=== PATIENT | male | born 1935 | race Caucasian/White ===

== ENCOUNTER → 2019-03-22 00:01 | Outpatient (RCR) | payer MEDICARE, OTHER, SELFPAY | LOC: ONCMED 02-21 08:30 | PROVIDERS: Family Provider Nurse Practitioner Family; Visit Provider Internal Medicine Medical Oncology | DX: Z51.12 Encounter for antineoplastic immunotherapy (principal); C34.2 Malignant neoplasm of middle lobe, bronchus or lung; J91.0 Malignant pleural effusion; C77.1 Secondary and unspecified malignant neoplasm of intrathoracic lymph nodes; C78.02 Secondary malignant neoplasm of left lung; E78.5 Hyperlipidemia, unspecified; I12.9 Hypertensive chronic kidney disease with stage 1 through stage 4 chronic kidney disease, or unspecified chronic kidney disease; N18.9 Chronic kidney disease, unspecified; I25.10 Atherosclerotic heart disease of native coronary artery without angina pectoris; I25.2 Old myocardial infarction; M06.9 Rheumatoid arthritis, unspecified; M48.061 Spinal stenosis, lumbar region without neurogenic claudication; Z79.899 Other long term (current) drug therapy; Z79.82 Long term (current) use of aspirin; Z79.52 Long term (current) use of systemic steroids; Z95.5 Presence of coronary angioplasty implant and graft | CPT/HCPCS: 71250; 74176; 80053 ×2; 82565; 84439; 84443 ×2; 84520; 85025 ×2; 96413; 99204; 99214 ×2; J7050; Q9967 ==

== ENCOUNTER 2019-04-20 05:51 | Outpatient (RCR) | payer MEDICARE, OTHER, SELFPAY ==
--- NOTE | 2019-03-24 | CTR_ITS ---
Radation Therapy Planning CT images; total exam DLP: 498.96 mGy-cm MTDD
--- NOTE | 2019-04-05 10:31 | ONCRAD TMN_ITS ---
Radiation Oncology Weekly Treatment Management Patient: Juan Whatley MR#: [id number] : 1935> Age: 83> Sex: Male Dictated by: Dr. Norris Rowland Date of Service: 04/05/2019 Referring Physician(s) : Tangela Whitlock Primary Diagnosis: C78.00 - Secondary malignant neoplasm of unspecified lung, Diagnosed 02/23/2019 (Active) C34.2 - Malignant neoplasm of middle lobe, bronchus or lung, Diagnosed 10/18/2018 (Active) Stage IV, T2a, N0, M1b J91.0 - Malignant pleural effusion, Diagnosed 10/18/2018 (Active) C77.1 - Secondary and unspecified malignant neoplasm of intrathoracic lymph nodes, Diagnosed 10/18/2018 (Active) Radiotherapy to date: Course: RT Lung 30Gy, Treatment Site: RT Lung 30Gy, Ref. ID: [id number], Energy: 15X, Dose/Fx (cGy): 300, #Fx: 5 / 10, Dose Correction (cGy): 0, Total Dose (cGy): 1,500, Start Date: 03/30/2019, Elapsed Days: 6 Current Complaints/Interval History: Constitutional Complains of mild fatigue. Denies lack of appetite, fever, night sweats and change in weight. ENMT Denies odynophagia or dysphagia. Respiratory Complains of a mild cough which is non-productive. Complains of dyspnea associated with normal activity. Denies hemoptysis and wheezing. Current Medications: Acetaminophen, aspirin, furosemide, hYDROcodone-Acetaminophen, lisinopril, lORazepam, marinol, metoprolol Tartrate, nivolumab, predniSONE, predniSONE, simvastatin, simvastatin. Allergies: No Known Allergies Vital Signs: Performed on 04/05/2019 9:39 AM BMI - 22.413 kg/m2, Height - 70.00 in, Weight - 156.2 lbs, Temperature - 97.3 f, Pulse - 74, Respiration - 20, O2 Sat - 98 %, Pain - 0 and BP - 124/ 63 mm(hg)(/low). Physical Exam: Appears stable, no skin erythema or desquamation. Performance Status: 2 - Ambulatory/capable of all self-care, unable to perform any work activities. Up and about more than 50% of waking hours. (ECOG) Lab: Test performed on 02/23/2019 11:00 AM WBC - 13.6 10 3/ul (high), RBC - 3.87 10 6/ul (low), HGB - 11.4 g/dl (low), HCT - 37.1 % (low), MCV - 95.9 fl (high), RDW - 15.2 % (high), Neutrophils - 11.4 10 3/ul (high), Monocytes - 1.1 10 3/ul (high), Sodium - 134 mmol/l (low), Potassium - 6.0 mmol/l (high), CO2 - 20 mmol/l (low), BUN - 46 mg/dl (high), Creatinine - 1.7 mg/dl (high), Cr Clearance (Est) - 31.2100 ml/min (low) and Albumin - 3.1 g/dl (low). Imaging: No new diagnostic imaging was performed since the last weekly treatment visit. All radiation therapy related imaging (including but not limited to CBCT generated images) was reviewed. Appropriate changes, if any, were made to assure accurate target localization. Impression/Plan: Tolerating treatment well. Continue treatment as planned. CPT: 65243 Signed by: Dr. Norris Rowland>04/05/2019 10:30:01 AM <<Signature on File>>
--- NOTE | 2019-04-12 10:00 | XRR_ITS ---
PROCEDURE INFORMATION: Exam: XR Left Foot Complete Exam date and time: 04/12/2019 2:44 PM Age: 83 years old Clinical indication: Condition or disease; Arthritis; Rheumatoid; Multiple sites; Bilateral; Additional info: Ra TECHNIQUE: Imaging protocol: XR Left foot. Views: 3 or more views. COMPARISON: No relevant prior studies available. FINDINGS: Bones/joints: Negative for acute bony abnormality. Negative for radiographic evidence of rheumatoid arthritis. Soft tissues: Unremarkable XR/XR foot LT min 3V* [id number] IMPRESSION: No acute findings. Negative for radiographic evidence of rheumatoid arthritis.
--- NOTE | 2019-04-12 10:00 | XRR_ITS ---
PROCEDURE INFORMATION: Exam: XR Right Hand Exam date and time: 04/12/2019 2:44 PM Age: 83 years old Clinical indication: Screening exam; Check for ra; Prior surgery; Surgery date: 6+ months; Surgery type: Amputation TECHNIQUE: Imaging protocol: XR Right hand. Views: 3 or more views. COMPARISON: No relevant prior studies available. FINDINGS: Bones/joints: Negative for acute bony abnormality. Negative for radiographic evidence of rheumatoid arthritis. There is evidence of osteoarthritis seen. Soft tissues: Normal. XR/XR hand RT min 3V* [id number] IMPRESSION: No acute findings. Negative for rheumatoid arthritis
--- NOTE | 2019-04-12 10:00 | XRR_ITS ---
PROCEDURE INFORMATION: Exam: XR Right Foot Complete Exam date and time: 04/12/2019 2:44 PM Age: 83 years old Clinical indication: Screening exam; Ra TECHNIQUE: Imaging protocol: XR Right foot. Views: 3 or more views. COMPARISON: No relevant prior studies available. 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 Negative for bone changes associated with rheumatoid arthritis. Soft tissues: Unremarkable XR/XR foot RT min 3V* [id number] IMPRESSION: No acute findings. 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
--- NOTE | 2019-04-12 10:00 | XRR_ITS ---
PROCEDURE INFORMATION: Exam: XR Left Hand Exam date and time: 04/12/2019 2:44 PM Age: 83 years old Clinical indication: Screening exam; Rheumatoid arthritis; Prior surgery; Surgery date: 6+ months TECHNIQUE: Imaging protocol: XR Left hand. Views: 3 or more views. COMPARISON: No relevant prior studies available. FINDINGS: Bones/joints: Negative for acute bony abnormality negative for radiographic evidence of rheumatoid arthritis Soft tissues: Normal. XR/XR hand LT min 3V* [id number] IMPRESSION: No acute findings. Negative for radiographic evidence of rheumatoid arthritis
[2019-04-12 13:00] LABS: Erythrocyte Sedimentation Rate 72 mm/hr (0-10)
--- NOTE | 2019-04-20 14:54 | ONCRAD TMN_ITS ---
Radiation Oncology Weekly Treatment Management/ Treatment Summary Patient: Juan Whatley MR#: [id number] : 1935 Age: 83 Sex: Male Dictated by: Dr. Norris Rowland Date of Service: 04/20/2019 Referring Physician(s) : Tangela Whitlock Primary Diagnosis: C78.00 - Secondary malignant neoplasm of unspecified lung, Diagnosed 02/23/2019 (Active) C34.2 - Malignant neoplasm of middle lobe, bronchus or lung, Diagnosed 10/18/2018 (Active) Stage IV, T2a, N0, M1b J91.0 - Malignant pleural effusion, Diagnosed 10/18/2018 (Active) C77.1 - Secondary and unspecified malignant neoplasm of intrathoracic lymph nodes, Diagnosed 10/18/2018 (Active) Radiotherapy to date: Course: RT Lung 30Gy, Treatment Site: RT Lung 30Gy, Ref. ID: [id number], Energy: 15X, Dose/Fx (cGy): 300, #Fx: 10 / 1, Dose Correction (cGy): 0, Total Dose (cGy): 3,000, Start Date: 03/30/2019, End Date: 04/13/2019, Elapsed Days: 14 Course: RT Lung 30Gy, Treatment Site: RT Lung 45Gy, Ref. ID: [id number], Energy: 6X, Dose/Fx (cGy): 300, #Fx: 5 / 5, Dose Correction (cGy): 0, Total Dose (cGy): 1,500, Start Date: 04/14/2019, End Date: 04/20/2019, Elapsed Days: 6 Current Complaints/Interval History: Constitutional Complains of moderate fatigue. Denies lack of appetite, fever, night sweats and change in weight. ENMT Denies odynophagia or dysphagia. Respiratory Complains of a moderate cough which is productive and the sputum is thick and white. Complains of dyspnea associated with more than usual activities. Denies hemoptysis and wheezing. Current Medications: Acetaminophen, aspirin, lORazepam, metoprolol Tartrate, nivolumab, predniSONE, predniSONE, simvastatin, simvastatin. Allergies: No Known Allergies Vital Signs: Performed on 04/20/2019 9:45 AM BMI - 22.527 kg/m2, Height - 70.00 in, Weight - 157.0 lbs, Temperature - 97.7 f, Pulse - 74, Respiration - 20, O2 Sat - 94 % (low), Pain - 0 and BP - 117/ 67 mm(hg). Physical Exam: Appears stable, no skin erythema or desquamation. Performance Status: 3 - Capable of only limited self-care, confined to bed or chair more than 50% of waking hours. (ECOG) Lab: None pending in Radiation Oncology. Imaging: No new diagnostic imaging was performed since the last weekly treatment visit. All radiation therapy related imaging (including but not limited to CBCT generated images) was reviewed. Appropriate changes, if any, were made to assure accurate target localization. Impression/Plan: Tolerated treatment well overall. Completed treatment as planned. CT of chest in 6 weeks and follow up with us afterwards. CPT: 89548 Signed by: Dr. Norris Rowalnd>04/20/2019 2:52:30 PM <<Signature on File>>
== END 2019-04-22 23:59 | disposition home or self-care (01) ==
LOC: ONCMED 05:51
PROVIDERS: Family Provider Nurse Practitioner Family; Visit Provider Radiology Radiation Oncology
DX: Z51.0 Encounter for antineoplastic radiation therapy (principal); C34.2 Malignant neoplasm of middle lobe, bronchus or lung; J91.0 Malignant pleural effusion; C77.1 Secondary and unspecified malignant neoplasm of intrathoracic lymph nodes; C78.02 Secondary malignant neoplasm of left lung; M06.9 Rheumatoid arthritis, unspecified; Z79.891 Long term (current) use of opiate analgesic; M19.041 Primary osteoarthritis, right hand; M19.042 Primary osteoarthritis, left hand; M17.0 Bilateral primary osteoarthritis of knee; Z92.3 Personal history of irradiation; M81.0 Age-related osteoporosis without current pathological fracture
CPT/HCPCS: 73130; 73630; 77014; 77263; 77280; 77290; 77295; 77300; 77301; 77334; 77336; 77338; 77386; 77412; 85651; 86140; 86431; 99204

== ENCOUNTER 2019-04-29 05:46 | Outpatient (RCR) | payer MEDICARE, OTHER, SELFPAY ==
--- NOTE | 2019-04-30 17:51 | ONC FU_ITS ---
Dr. Farrar Patient Follow-Up Note Patient: Juan Whatley Unit #: [id number]: 1935 Dicatated By: Amado Farrar M.D.Date of Visit:Apr 29, 2019 Onc Med Follow-up/Prog Note Chief Complaint: Lung cancer. 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 He has had subsequent progression to stage IV (M1b) with malignant pleural effusion, biopsy-proven mediastinal lymph node involvement, and suspected bone involvement by PET/CT. 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 On 05/28/2012 he underwent cervical mediastinoscopy, thoracic lymphadenectomy, and robotic right middle lobectomy for moderately differentiated adenocarcinoma involving the middle lobe of the left lung. His disease was stage IA (pT2a, pN0, M0). 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 He had otherwise done well until May 2018 when his surveillance chest CT scan showed a new moderate to large right pleural effusion with bilateral indeterminate pulmonary micronodules and an increase in subcarinal adenopathy as well as adenopathy in the AP window. He underwent thoracentesis on 06/30/2018 with pleural fluid cytology suspicious for non-small cell carcinoma. On 01/13/2019 he underwent bronchoscopy with EBUS and biopsies of multiple lymph nodes. Pathology showed metastatic moderately differentiated adenocarcinoma involving station 4R, station 7, and station 10 R lymph nodes. 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 A BRAF mutation was not detected, and the ROS1 gene arrangement was not detected. PD-L1 expression was detected in 0% of tumor cells and and in 30% of tumor associated immune cells. He then underwent placement of a pleural drainage catheter in the right chest. On 08/24/2018 he began treatment with osimertinib 80 mg daily. As of 09/22/2018 the osimertinib was put on hold due to nausea/vomiting and weight loss. He was off for about a week, and his symptoms improved. He then restarted treatment concurrently with ondansetron. I had seen him initially on 10/18/2018, as he had desired to continue his treatment closer to home. At that point he was having some nausea with the osimertinib. He still had a pleural drainage catheter in place, with about 300 mL of fluid out once a week. He opted to continue taking it at 80 mg daily. His other medical illnesses include hypertension, hyperlipidemia, chronic kidney disease, and coronary artery disease. He has had previous myocardial infarction and angioplasty/stent placement. He has history of rheumatoid arthritis, for which he had previously been on treatment with methotrexate. 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 He is a nonsmoker. INTERIM HISTORY: On 10/25/2018 he returned to the office with severe nausea/vomiting. He was given IV fluids and IV anti-emetics daily for 2 days and then again on the following Thursday. During that time the osimertinib was put on hold, and I also had him start prednisone 10 mg twice a day. On 11/01/2018 he was admitted to the hospital after presenting to the emergency room with increased shortness of breath and chest discomfort. He had a slightly elevated troponin T, consistent with non-ST elevation myocardial infarction. His echocardiogram showed hypokinesis of the apex and anterior wall suggesting an infarct in the LAD distribution. The ejection fraction was estimated in the range of 35-40%. The only prior study available was a sestamibi stress test from February 2016 which reported an ejection fraction of 58%. His pleural fluid drainage had increased significantly, requiring it to be drained on a daily basis. He opted to have conservative management. He was discharged home on metoprolol 25 mg twice a day together with isosorbide mononitrate 30 mg daily and 325 mg of aspirin daily. He was seen for a follow-up visit on 11/05/2018. At that point he still had very poor performance status. He continued prednisone 10 mg twice a day, and I also had him start furosemide 20 mg daily and Marinol 2.5 mg twice a day. As his blood pressure was relatively low, I had him stop both the isosorbide mononitrate and the lisinopril. He had subsequently reduced the metoprolol dosage to 12.5 mg daily. He had ongoing problems with weakness and orthostatic lightheadedness, and he continued to have relatively low blood pressure. He then presented with significant worsening of shortness of breath. A CT pulmonary angiogram on 12/13/2018 showed no evidence of pulmonary embolism and there were no other acute findings. There was no change in the right pleural effusion and in the right lower lobe atelectasis. Repeat echocardiogram on 12/15/2018 showed mild diffuse hypokinesia of the left ventricle with ejection fraction estimated at 45-50%, improved compared to the study from 11/01/2018. During subsequent follow-up, he had felt somewhat better, and he ultimately did opt to begin a trial of immunotherapy with nivolumab a 2-week dosing schedule. He received his cycle 1 treatment on 12/22/2018. He tolerated with acceptable toxicity, and he continued with cycle 2 on 01/05/2019, with cycle 3 on 01/19/2019, and with cycle 4 on 02/02/2019. Restaging CT scans of the chest, abdomen, and pelvis on 02/21/2019 showed persistent atelectasis/consolidation in the right lower lobe as well as progression of neoplastic process involving the posterior medial margin of the right upper lobe. There was metastatic pleural thickening similar to the prior exam. There was loculated right pleural effusion and there was persistent mediastinal and right hilar lymphadenopathy. Also noted was increased in number and size of bilateral pulmonary parenchymal metastatic nodules. I had seen him for a follow-up visit on 02/23/2019. I reviewed the CT findings, and we discussed the fact that it did appear that his disease was showing progression. At that point he was still motivated to continue treatment, and he continued with cycle 5 of nivolumab. At his follow-up visit on 03/09/2019 his symptoms had obviously worsened, and there was further decline in his performance status. I recommended that he stop the immunotherapy. After review of his CT scans with Dr. Rowland, he was offered the option to undergo palliative radiation. He completed treatment on 04/20/2019, total dose 4500 cGy. He tolerated it well. He is seen for a follow-up visit. He is definitely feeling better after the radiation, though he still has limited activity. His breathing, though, has improved to the point that he is at least able to take walks. His ECOG score is 2. He has good appetite. He has no fever or night sweats. He does have cough productive of thick, white sputum. He occasionally has chest pain. He has no GI/ complaints other than constipation. He has no significant joint or bone pain. He does not complain of headache. He has some orthostatic lightheadedness. He complains that his feet tingle all night. Medications: Acetaminophen 1 Tablet (of 500 mg) Oral daily, Aspirin 1 Tablet (of 81 mg) Oral at bedtime, LORazepam 1 (0.5 mg) Tablet Oral PRN, Metoprolol Tartrate 0.5 Tablet (of 25 mg) Oral daily, predniSONE 1 Tablet (of 10 mg) Oral daily, Simvastatin 1 Tablet (of 20 mg) Oral at bedtime Allergies: No Known Allergies. Review of Systems: Constitutional - His energy has gotten better and he is feeling better. He is up and around at home. His appetite is good and his weight is down a couple of pounds. No fever, chills, hot flashes, or night sweats. ECOG score is 2, ENMT - No sinus congestion/drainage. No mouth sores. No sore throat or difficulty swallowing, Hematologic/Lymphatic - He bruises easily, Respiratory - His breathing has gotten better, but he still gets short of breath with activity. He has a cough that produces thick white phlegm. No pleuritic pain or hemoptysis, Cardiovascular - He has occasional chest pain. No palpitations, Gastrointestinal - No nausea or vomiting. No heartburn or acid reflux. He has constipation. No blood in the stool or black stools, Genitourinary (M) - No dysuria or hematuria. No urinary frequency. No urgency or incontinence, Musculoskeletal - No joint or bone pain, Integumentary - No skin complications, Neurologic - No headache. He has some dizziness when he stands up. He has numbness and tingling in his feet, Psychiatric - No anxiety or depression. No insomnia. Vital Signs: Performed on Apr 29, 2019 12:15 Height - 70.00 in Weight - 155.8 lbs (LOW) BSA - 1.88 sq.m BMI - 22.36 Temperature - 97.2 F (LOW) Pulse - 103 /min (HIGH) Respiration - 16 /min BP - 138/83 mm(hg) O2 Sat - 93 % (LOW) Pain - 0 Physical Examination: Constitutional - He still appears somewhat weak generally, though definitely better, Eyes - Sclerae nonicteric. Conjunctivae clear, ENMT - No lesions noted in the oral cavity, Hematologic/Lymphatic - No cervical, clavicular, or axillary adenopathy, Respiratory - Lungs show diminished air movement bilaterally, worse on the right, Cardiovascular - Heart rhythm is irregular. The rate is controlled. There is no murmur, gallop, or rub noted, Abdomen - Soft. Liver and spleen are not enlarged. There is no abdominal mass or ascites noted and there is no inguinal adenopathy, Extremities - Slight edema, Neurologic - No focal neurologic deficits noted. Impression: 1. 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 He underwent cervical mediastinoscopy, thoracic lymphadenectomy, and robotic right middle lobectomy on 05/28/2012. 2. He had subsequent progression to stage IV (M1b) with malignant pleural effusion, biopsy-proven mediastinal lymph node involvement, and suspected bone involvement by PET/CT. 3. 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 He began treatment with osimertinib on 08/24/2018. 4. 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 His other medical illnesses include: 5. Hypertension. 6. Hyperlipidemia. 7. Chronic kidney disease. 8. Coronary artery disease with previous myocardial infarction and angioplasty/stent placement. 9. History of rheumatoid arthritis, currently inactive. 10. Degenerative arthritis. 11. 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 He had initially attempted to continue his treatment with osimertinib 80 mg daily. As of 10/25/2018 it was put on hold due to severe nausea. On 11/01/2018 he was admitted to the hospital with suspected non-ST elevation myocardial infarction. His echocardiogram at that time showed severe left ventricular dysfunction with estimated ejection fraction 35-40%. The most likely cause would have been the underlying ischemic heart disease, though osimertinib also was a consideration, as it has a reported incidence of cardiomyopathy in the range of 3-4%. As such, the osimertinib was permanently discontinued. During follow-up he has shown gradual improvement in his appetite/oral intake and in his performance status. He continued to have relatively low blood pressure. He had come in earlier this week with increased shortness of breath. His CT pulmonary angiogram showed no pulmonary embolim or other acute findings. Right pleural effusion and right lower lobe atelectasis appeared stable. His echocardiogram does show significant improvement in the LV function, with his ejection fraction now estimated in the range of 45-50%. Overall, he continued to have fairly marginal performance status, but with those findings he opted to proceed with a trial of immunotherapy with nivolumab at a 2-week dosing schedule. He received cycle 1 on 12/22/2018. He tolerated it with acceptable toxicity, and he continued treatment at 2-week intervals. As of 02/02/2019 he had completed 4 cycles of treatment. His restaging CT scans on 02/21/2019 show some areas of disease progression, including development of bilateral pulmonary parenchymal nodules consistent with metastatic disease. His overall clinical status at that point appeared stable, and he opted to continue with cycle 5 of nivolumab. At his follow-up visit on 03/09/2019 his symptoms had worsened significantly, and he appeared to have a a significant decline in his performance status. At that point I had recommended stopping the immunotherapy. After reviewing his CT scans with Dr. Rowland, he was given the option to undergo palliative radiation to the right lung tumor. He completed treatment on 04/20/2019, total dose 4500 cGy. He has had significant clinical improvement with the radiation. He has not yet been evaluated for response. Plan: He will be followed on observation/symptomatic management while he has some additional time for recovery from the radiation. I will see him again in 1 month with a restaging chest CT. We can then consider the possibility of a trial of second line TKI therapy with erlotinib. In the meantime, he will reduce prednisone to 10 mg daily and he will start a bowel regimen with senna/docusate. Signed By: Amado Farrar M.D. <<Signature on File>>
== END 2019-05-21 23:59 | disposition home or self-care (01) ==
LOC: ONCMED 05:46
PROVIDERS: Family Provider Nurse Practitioner Family; PCP Radiology Radiation Oncology; Visit Provider Internal Medicine Medical Oncology
DX: C34.2 Malignant neoplasm of middle lobe, bronchus or lung (principal); C78.02 Secondary malignant neoplasm of left lung; J91.0 Malignant pleural effusion; C77.1 Secondary and unspecified malignant neoplasm of intrathoracic lymph nodes; I25.2 Old myocardial infarction; M06.9 Rheumatoid arthritis, unspecified; I12.9 Hypertensive chronic kidney disease with stage 1 through stage 4 chronic kidney disease, or unspecified chronic kidney disease; N17.9 Acute kidney failure, unspecified; I25.10 Atherosclerotic heart disease of native coronary artery without angina pectoris; M19.90 Unspecified osteoarthritis, unspecified site; M48.061 Spinal stenosis, lumbar region without neurogenic claudication; E78.5 Hyperlipidemia, unspecified; Z79.899 Other long term (current) drug therapy; Z79.82 Long term (current) use of aspirin; Z79.52 Long term (current) use of systemic steroids; Z90.2 Acquired absence of lung [part of]; Z95.5 Presence of coronary angioplasty implant and graft; Z92.3 Personal history of irradiation
CPT/HCPCS: 99214

== ENCOUNTER 2019-05-03 10:02 | Observation (INO) | payer MEDICARE, OTHER, SELFPAY ==
[2019-05-03] VITALS (8 sets, daily range): BP systolic 108–140; BP diastolic 58–103; PULSE 69–118; RESP 14–24; TEMP 36.5–37.4; O2SAT 93–99; BMI 22.4
--- NOTE | 2019-05-03 10:39 | W.ED.NEUROSD ---
HPI - Neuro Symptoms/Deficit General: Chief Complaint: Neuro Symptoms/Deficit Stated Complaint: Poss. TIA this morning Time Seen by Provider: 05/03/19 10:41 History of Present Illness: Associated symptoms: Deny chest pain Review of Systems General: Reports: 10 or more systems reviewed and unremarkable except in HPI and below Card: Denies: chest pain, palpitations, irregular heart rhythm or edema Resp: Denies: shortness of breath, productive cough, non-productive cough, wheezing, stridor, pain on inspiration, change in phlegm color, coughing up blood, chest congestion or other Neuro: Reports: weakness in extremities and changes in sensation PFSH ED PFSH: Statuses (acute, chronic, etc) shown below reflect problem list status as previously entered and may not be historically accurate Medical History Deformity of joint Hx of radiation therapy Lung cancer OA (osteoarthritis) of knee Osteoarthritis of hands, bilateral Social History Smoking and tobacco status: never smoked Alcohol intake: never History of recent travel: No Physical Exam Const: COMMON NORMALS: no apparent distress, average body habitus, oriented x3, no limitations, healthy appearing, alert and well nourished Resp: COMMON NORMALS: normal respiratory effort, no retractions, no use of accessory muscles, clear to auscultation bilaterally and percussion normal AUSCULTATION: clear to auscultation bilaterally PERCUSSION: percussion normal Extremity: COMMON NORMALS: normal to inspection, full ROM and normal capillary refill Neuro: COMMON NORMALS: oriented x3 SENSORIUM/ORIENTATION: Yes alert Course Vital Signs: Vital signs: Vital Signs Temperature 97.7 F 05/03/19 10:31 Pulse Rate 91 05/03/19 11:58 Respiratory Rate 19 H 05/03/19 11:58 Blood Pressure 130/79 05/03/19 11:58 Pulse Oximetry 95 05/03/19 10:31 MDM - Neuro Symptoms/Deficit Lab Data: Labs: Lab Results 05/03/19 05/03/19 05/03/19 Range/Units 11:05 11:05 11:05 WBC 12.0 H (4.0-10.0) 10^3/ uL RBC 4.32 (4.1-5.3) 10^6/u L Hgb 12.8 (11.7-16.6) g/dL Hct 41.5 L (42.0-52.0) % MCV 96.1 H (80-94) fL MCH 29.6 (28.0-34.0) pg MCHC 30.8 (30.0-36.0) g/dL RDW 15.8 H (12.1-15.1) % Plt Count 268 (130-400) 10^3/c mm MPV 9.5 (7.4-10.4) fL Neut % (Auto) 83.5 % Lymph % (Auto) 5.8 % Newton % (Auto) 9.8 % Eos % (Auto) 0.2 % Baso % (Auto) 0.2 % Neut # (Auto) 10.0 H (1.8-7.7) 10^3/u L Lymph # (Auto) 0.7 L (0.8-4.8) 10^3/u L Newton # (Auto) 1.2 H (0.2-0.9) 10^3/u L Eos # (Auto) 0.0 (0.0-0.8) 10^3/u L Baso # (Auto) 0.0 (0.0-0.1) 10^3/u L Nucleated RBC % (a uto) 0 % Nucleated RBCs # 0.0 /100WBC PT 14.20 H (10.5-13.3) SECO NDS INR 1.07 (0.8-1.2) APTT 27.2 (23.9-36.7) SECO NDS Sodium 138 (136-145) mmol/L Potassium 4.6 (3.5-5.1) mmol/L Chloride 98 (98-107) mmol/L Carbon Dioxide 25 (22-29) mmol/L Anion Gap 19.6 H (5-19) BUN 43 H (8-23) mg/dL Creatinine 1.6 H (0.7-1.2) mg/dL Glucose 107 (65-115) mg/dL POC Glucose (70-110) mg/dL Calcium 10.1 (8.5-10.5) mg/dL Total Bilirubin 0.3 (0.15-1.2) mg/dL AST 63 H (0-40) U/L ALT 24 (0-41) U/L Alkaline Phosphata se 127 (40-130) IU/L Total Protein 7.2 (6.6-8.7) g/dL Albumin 3.3 L (3.5-5.2) g/dL Globulin 3.9 (1.3-4.6) g/dL 05/03/19 Range/Units 11:18 WBC (4.0-10.0) 10^3/ uL RBC (4.1-5.3) 10^6/u L Hgb (11.7-16.6) g/dL Hct (42.0-52.0) % MCV (80-94) fL MCH (28.0-34.0) pg MCHC (30.0-36.0) g/dL RDW (12.1-15.1) % Plt Count (130-400) 10^3/c mm MPV (7.4-10.4) fL Neut % (Auto) % Lymph % (Auto) % Newton % (Auto) % Eos % (Auto) % Baso % (Auto) % Neut # (Auto) (1.8-7.7) 10^3/u L Lymph # (Auto) (0.8-4.8) 10^3/u L Newton # (Auto) (0.2-0.9) 10^3/u L Eos # (Auto) (0.0-0.8) 10^3/u L Baso # (Auto) (0.0-0.1) 10^3/u L Nucleated RBC % (a uto) % Nucleated RBCs # /100WBC PT (10.5-13.3) SECO NDS INR (0.8-1.2) APTT (23.9-36.7) SECO NDS Sodium (136-145) mmol/L Potassium (3.5-5.1) mmol/L Chloride (98-107) mmol/L Carbon Dioxide (22-29) mmol/L Anion Gap (5-19) BUN (8-23) mg/dL Creatinine (0.7-1.2) mg/dL Glucose (65-115) mg/dL POC Glucose 97 (70-110) mg/dL Calcium (8.5-10.5) mg/dL Total Bilirubin (0.15-1.2) mg/dL AST (0-40) U/L ALT (0-41) U/L Alkaline Phosphata se (40-130) IU/L Total Protein (6.6-8.7) g/dL Albumin (3.5-5.2) g/dL Globulin (1.3-4.6) g/dL Discharge Plan Discharge Patient Disposition: Admitted As Inpatient Clinical Impression: Transient cerebral ischemia Qualifiers: Transient cerebral ischemia type: carotid artery syndrome (hemispheric) Qualified Code(s): G45.1 - Carotid artery syndrome (hemispheric) Condition: Fair Referrals: Teri Hernandez FNP [Family Provider] - Norris Rowland [Primary Care Provider] - Coding Level of Care Code ED Drill Sergeant for Hollie Merchant
--- NOTE | 2019-05-03 10:58 | ECG_ITS ---
Measurements Intervals [place] Rate: 117 P: ID: 0 QRS: 24 QRSD: 101 T: -73 QT: 305 QTc: 426 ATRIAL FIBRILLATION WITH RAPID VENTRICULAR RESPONSE WITH ABERRANT CONDUCTION OR VENTRICULAR PREMATURE COMPLEXES ST DEVIATION AND MODERATE T-WAVE ABNORMALITY, CONSIDER LATERAL ISCHEMIA [-0.1+ m T WAVE IN I/aVL/V5/V6] ST DEVIATION AND MODERATE T-WAVE ABNORMALITY, CONSIDER INFERIOR ISCHEMIA [-0.1+ mV T WAVE IN II/aVF] Compared to ECG 11/02/2018 06:08:37 Aberrant conduction of supraventricular beat(s) now present Sinus rhythm no longer present Myocardial infarct finding no longer present T-wave abnormality still present Possible ischemia still present Electronically Signed On 05-03-2019 19:58:09 BEER COOLER by Derek Drummond M.D. [id number]
--- NOTE | 2019-05-03 10:58 | XR_ITS ---
WS: [id number] Portable AP upright chest, 05/03/2019 Clinical Data: lung ca Comparison: PA and lateral chest, 03/09/2019. Findings: There is volume loss in the right lower lobe with effusion and atelectasis. There is pleura l thickening along the right lateral pleura up to the right apex. The left lung is fully expanded. Th e aortic arch and descending aorta show calcification and tortuosity. There is shift of the mediastin um and heart from left to right. No nodules or masses are seen. XR/XR chest 1V portable [id number] Impression: 1. Right lower lobe effusion and atelectasis unchanged. 2. Right lateral pleural and apical thickening unchanged. 3. Volume loss in the right lung with shift of the heart and mediastinum from l eft to right unchanged.
[2019-05-03 11:13] LABS: Basophils % 0.2 %; Eosinophils % 0.2 %; Hematocrit 41.5 % (42.0-52.0); Hemoglobin 12.8 g/dL (11.7-16.6); Lymphocytes # 0.7 10^3/uL (0.8-4.8); Lymphocytes % 5.8 %; Mean Corpuscular HGB Conc 30.8 g/dL (30.0-36.0); Mean Corpuscular Hemoglobin 29.6 pg (28.0-34.0); Mean Corpuscular Volume 96.1 fL (80-94); Mean Platelet Volume 9.5 fL (7.4-10.4); Monocytes # 1.2 10^3/uL (0.2-0.9); Monocytes % 9.8 %; Neutrophils % 83.5 %; Nucleated Red Blood Cells % 0 %; Platelet Count 268 10^3/cmm (130-400); Red Blood Count 4.32 10^6/uL (4.1-5.3); Red Cell Distribution Width 15.8 % (12.1-15.1)
[2019-05-03 11:21] LABS: INR 1.07 (0.8-1.2)
[2019-05-03 11:21] LABS: Glucose Point of Care 97 mg/dL (70-110)
[2019-05-03 11:22] LABS: Partial Thromboplastin Time 27.2 SECONDS (23.9-36.7)
[2019-05-03] MEDS: aspirin 325 mg Tablet PO (11:26)
[2019-05-03] MEDS: sodium chloride 0.9% 500 ML 999 ML IV (11:27)
[2019-05-03 11:28] LABS: Alanine Aminotransferase 24 U/L (0-41); Albumin Level 3.3 g/dL (3.5-5.2); Alkaline Phosphatase 127 IU/L (40-130); Anion Gap 19.6 (5-19); Aspartate Amino Transferase 63 U/L (0-40); Blood Urea Nitrogen 43 mg/dL (8-23); Calcium 10.1 mg/dL (8.5-10.5); Carbon Dioxide 25 mmol/L (22-29); Chloride 98 mmol/L (98-107); Globulin 3.9 g/dL (1.3-4.6); Glucose 107 mg/dL (65-115); Potassium 4.6 mmol/L (3.5-5.1); Sodium 138 mmol/L (136-145); Total Bilirubin 0.3 mg/dL (0.15-1.2); Total Protein 7.2 g/dL (6.6-8.7)
--- NOTE | 2019-05-03 11:39 | CT_ITS ---
WS: [id number] CT scan of the head, 05/03/2019 Clinical Data: tia Comparison: None. DLP: 1472.[address] scans at [facility] use at least one of these dose optimization techniques: automat ed exposure control; mA and/or kV adjustment per patient size (includes targeted exams where dose is matched to clinical indication); or iterative reconstruction. Findings: The ventricular system is currently dilated without shift. No recent infarct or hemorrhage is seen. There is a small area of encephalomalacia in the posterior right parietal lobe. There are no abnormal intracerebral masses. The cerebellum and brainstem are not remarkable. Bony windows of the skull and skull base show no fractures or erosions. The mastoid air cells, agriculture intern al auditory canals, sella turcica, intraorbital contents, and paranasal sinuses show only a small ost eoma in the right frontal sinus. Impression: 1. Moderate cerebral atrophy. 2. Small area of encephalomalacia malacia in the posterior right parietal lobe. 3. Negative for acute hemorrhage or infarct.
--- NOTE | 2019-05-03 12:20 | USCV_ITS ---
Juan Whatley Age: 83 Gender: M : 1935 Exam Date: 05/03/2019 12:30 Ordering Phys: Cliff Woods DO Technologist: Azra Barrientos Exam Location: [facility] [place] Indication: TIA BP: / HR: 95 Rhythm: Sinus Technical Quality: Very technically difficult study MEASUREMENTS (Male / Female) Normal Values 2D ECHO LA Width 4.8 cm LA Height 6.2 cm RA Width 2.9 cm RA Height 4.1 cm M-MODE LV Diastolic Diameter MM 5.2 cm 4.2 - 5.9 / 3.9 - 5.3 cm LV Systolic Diameter MM 4.5 cm LV Ejection Fraction MM Teich 28.7 % IVS Diastolic Thickness MM 0.3 cm 0.6 - 1.0 / 0.6 - 0.9 cm IVS Systolic Thickness MM 0.6 cm LVPW Diastolic Thickness MM 0.8 cm 0.6 - 1.0 / 0.6 - 0.9 cm LVPW Systolic Thickness MM 0.7 cm DOPPLER TV Peak E Velocity 69.0 cm/s Right Atrial Pressure 15.0 mmHg PV Peak Velocity 41.0 cm/s FINDINGS Left Ventricle Moderately increased left ventricular cavity size. Severely decreased left ventricular systolic function. Left ventricular ejection fraction is estimated at 35 %. There appeared to be mid to distal anterior and apical wall severe hypokinesis. In the presence of atrial fibrillation diastolic function cannot be assessed accurately. Right Ventricle The right ventricle is normal in size and function. Right Atrium The right atrium is normal in size. Left Atrium The left atrium is normal in size. Mitral Valve Moderately thickened mitral valve. No mitral valve stenosis. Mild mitral valve regurgitation. Aortic Valve Mild aortic valve calcification. No aortic valve stenosis. Trace aortic valve regurgitation. Tricuspid Valve Structurally normal tricuspid valve without significant stenosis or regurgitation. Pulmonary artery systolic pressure is normal. Pulmonic Valve Pulmonic valve not well visualized. Pericardium Normal pericardium without effusion. Aorta Aorta not well visualized. CONCLUSIONS 1-Moderately increased left ventricular cavity size. Severely decreased left ventricular systolic function. Left ventricular ejection fraction is estimated at 35 %. There appeared to be mid to distal anterior and apical wall severe hypokinesis. In the presence of atrial fibrillation diastolic function cannot be assessed accurately. 2-Moderately thickened mitral valve. No mitral valve stenosis. Mild mitral valve regurgitation. 3-Mild aortic valve calcification. No aortic valve stenosis. Trace aortic valve regurgitation. 4-There is no pericardial effusion. 5-When compared to the prior echocardiogram dated 12/15/2018 there is worsening of LV function 4 moderately reduced 45-50% to severely reduced 30% now. Overall this is a technically difficult study which is limited in its scope. Adrián Cerda MD (Electronically Signed) Final Date: 04 May 2019 18:18 S
--- NOTE | 2019-05-03 12:23 | PC.NURSE ---
Pt to CT
--- NOTE | 2019-05-03 12:31 | PC.NURSE ---
Pt back from CT
[2019-05-03 12:35] LABS: Add Urine Microscopic? NO
[2019-05-03 12:38] LABS: Bilirubin Urine Neg (NEGATIVE); Blood Urine Neg (Negative); Glucose Urine UA Norm (Normal); Ketones Urine Negative (Negative); Leukocyte Esterase Urine Negative (Negative); Nitrate Urine Negative (Negative); Protein Urine Neg (Negative); Urine Appearance Clear (CLEAR); Urine Color Yellow (Yellow); Urobilinogen Urine Norm (Negative); pH Urine 5 (5-7)
--- NOTE | 2019-05-03 12:47 | PC.NURSE ---
US at bedside
--- NOTE | 2019-05-03 12:54 | PC.PHAR ---
PTS STATES THAT HE NO LONGER TAKES ANY KCL, HTCZ, OR LASIX
--- NOTE | 2019-05-03 13:48 | PC.NURSE ---
Dr Ortiz at bedside
--- NOTE | 2019-05-03 14:24 | PM.HP ---
Providers/Chief Complaint Admitting Physician: Nati Ortiz DO Primary Care Provider: Norris Rowland MD,PhD Teri Hernandez Chief Complaint: Poss. TIA this morning History of Present Illness Juan Whatley is a 83 year old male with a past medical history of stage IV lung cancer with malignant effusion, hypertension, hyperlipidemia and rheumatoid arthritis as well as on chronic steroids that presented to the emergency department for sudden onset of left-sided numbness and weakness. He stated that he woke up at about 6:00 this morning went to sit in his chair and began having complete numbness on the left side of his body. He stated that he was having difficulty moving the left side of his body and called for his . He stated that he was having some slurred speech and due to the symptoms he was brought into the ER for further evaluation and treatment. He stated that his symptoms lasted for approximately 20 minutes and resolved. He reported that several weeks ago he had a similar episode where it was deficit on his right side and it lasted for approximately 5 minutes, he just told his about this episode today. He reported that he has not had any recent illness, no fevers or chills. He stated that he has been on prednisone at a higher dose due to decreased appetite, now on 20 mg daily. He reports slightly increase in fluid intake and nutrition. He does report following with Dr. Farrar in the past week and being taken off of some blood pressure medications due to some orthostatic changes. He denies any headache or vision changes at time of exam. Patient was seen and evaluated in the emergency department and placed on observation due to concern for TIA, his symptoms had resolved and he was feeling back to his baseline while in the ED. Review of Systems Const: Denies: fever or chills Eyes: Denies: change in vision ENMT: Denies: nasal congestion Card: Denies: chest pain, palpitations or edema Resp: Reports: productive cough; Denies: shortness of breath or coughing up blood GI: Denies: abdominal pain, nausea, vomiting, diarrhea, constipation, blood in stool or black tarry stool : Denies: painful urination or blood in urine Musc: Denies: extremity pain or muscle cramps Skin/Breast: Denies: rash or new lesion Neuro: Reports: numbness in extremities (Initially, now resolved), weakness in extremities (Initially in the left extremities, now resolved) and slurred speech (Now resolved); Denies: headache or dizziness Psych: Denies: anxiety or depression Endo: Denies: excessive urination or hot flashes Travis/Lymph: Denies: easy bruising or easy bleeding Medications/Allergies Home Medications Medication Instructions Recorded Confirmed Last Taken Type melatonin 1 tab PO BEDTIME PRN 05/03/19 05/03/19 Unknown History Allergies Allergy/AdvReac Type Severity Reaction Status Date / Time No Known Allergies Allergy Verified 04/25/19 08:47 PFSH Acute PFSH: Statuses (acute, chronic, etc) shown below reflect problem list status as previously entered and may not be historically accurate Medical History (Updated 05/03/19 @ 14:31 by Nati Ortiz DO) Chronic kidney disease Coronary artery disease Deformity of joint History of coronary angiogram Stent placement HTN (hypertension) Hx of radiation therapy Hyperlipidemia Lung cancer 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 Followed by Dr. Farrar OA (osteoarthritis) of knee Osteoarthritis of hands, bilateral Rheumatoid arthritis Surgical History (Updated 05/03/19 @ 13:35 by Nati Ortiz DO) History of bronchoscopy 01/13/19 EBUS History of lobectomy of lung 05/28/2012 underwent cervical mediastinitis Skippy, thoracic lymphadenectomy, robotic right middle lobectomy History of total right knee replacement Family History (Updated 05/03/19 @ 14:27 by Nati Ortiz DO) Mother Cancer Father Cancer Leukemia Social History (Updated 05/03/19 @ 14:28 by Nati Ortiz DO) Smoking and tobacco status: never smoked Alcohol intake: never Substance/Drug Use: never Household members: spouse Marital status: History of recent travel: No Vitals/I&O/Wt Last Vital Signs Temp 97.7 F 05/03/19 10:31 Pulse 89 05/03/19 14:20 Resp 14 05/03/19 14:20 BP 113/64 05/03/19 14:20 Pulse Ox 94 05/03/19 14:20 05/02/19 05/03/19 05/03/19 22:59 06:59 14:59 Intake Total 500 / 500 Balance 500 / 500 Weight last 48 hrs Weight 70.76 kg Physical Exam Const: COMMON NORMALS: oriented x3 and alert GENERAL APPEARANCE: cooperative ORIENTATION/CONSCIOUSNESS: Yes awake, Yes oriented to person, Yes oriented to place and Yes oriented to time HENMT: COMMON NORMALS: normocephalic and head/scalp atraumatic HEAD & SCALP: normocephalic and atraumatic Eye: COMMON NORMALS: PERRL PUPIL: Yes PERRL Neck/C-Spine: COMMON NORMALS: supple GENERAL: Yes normal visual inspection Resp: COMMON NORMALS: clear to auscultation bilaterally OTHER: Respirations even and unlabored, diminished breath sounds in the right chest, no wheezing or rhonchi. Cardio: OTHER: Irregularly irregular GI: COMMON NORMALS: soft to palpation and non-tender INSPECTION: No abdominal distension AUSCULTATION: Yes normoactive bowel sounds PALPATION: Yes soft Extremity: COMMON NORMALS: no clubbing, cyanosis or edema and no calf tenderness Neuro: COMMON NORMALS: oriented x3, CN's II-XII intact bilaterally, moves all extremities and no focal motor deficits SENSORIUM/ORIENTATION: Yes alert, Yes oriented to person, Yes oriented to place and Yes oriented to time SPEECH: speech normal Psych: COMMON NORMALS: mental status grossly normal and cooperative Skin: COMMON NORMALS: no rashes or lesions noted GENERAL SKIN EXAM: no rashes or lesions noted Data : 05/03/19 11:05 05/03/19 11:05 CT Head: Radiologist's impression: Personally reviewed, report as read by radiologist: Findings: The ventricular system is currently dilated without shift. No recent infarct or hemorrhage is seen. There is a small area of encephalomalacia in the posterior right parietal lobe. There are no abnormal intracerebral masses. The cerebellum and brainstem are not remarkable. Bony windows of the skull and skull base show no fractures or erosions. The mastoid air cells, internal auditory canals, sella turcica, intraorbital contents, and paranasal sinuses show only a small osteoma in the right frontal sinus. Impression: 1. Moderate cerebral atrophy. 2. Small area of encephalomalacia malacia in the posterior right parietal lobe. 3. Negative for acute hemorrhage or infarct. CXR: Radiologist's impression: Personally reviewed, report as read by radiologist: Impression: 1. Right lower lobe effusion and atelectasis unchanged. 2. Right lateral pleural and apical thickening unchanged. 3. Volume loss in the right lung with shift of the heart and mediastinum from left to right unchanged. A&P Assessment and plan (1) TIA (transient ischemic attack): TIA with left-sided weakness and paresthesias as well as expressive aphasia, now resolved CT head as noted above Patient with new onset atrial fibrillation, and due to his CHADS score would benefit from anticoagulation, due to his age and renal function will start on Eliquis 2.5 mg twice daily Echocardiogram and carotid ultrasound ordered Status: Acute Code(s): G45.9 - Transient cerebral ischemic attack, unspecified (2) Lung cancer: Without acute change Status: Acute Code(s): C34.90 - Malignant neoplasm of unspecified part of unspecified bronchus or lung (3) Hyperlipidemia: Increased to high intensity statin, discontinue home simvastatin and start on atorvastatin Status: Acute Code(s): E78.5 - Hyperlipidemia, unspecified (4) HTN (hypertension): On lisinopril and metoprolol, will restart for tomorrow Status: Acute Code(s): I10 - Essential (primary) hypertension (5) Chronic kidney disease: Creatinine appears to be at baseline Status: Acute Code(s): N18.9 - Chronic kidney disease, unspecified (6) Coronary artery disease: With a history of stent placement, monitor on telemetry, patient has no chest pain or shortness of breath at this time Status: Acute Code(s): I25.10 - Atherosclerotic heart disease of [place] coronary artery without angina pectoris (7) Atrial fibrillation: New onset atrial fibrillation Echocardiogram ordered for further evaluation and treatment We will check TSH Continue on home metoprolol, rate controlled at this time Start on Eliquis 2.5 mg twice daily, decreased dose due to age and renal function Telemetry Status: Acute Code(s): I48.91 - Unspecified atrial fibrillation Additional A&P Information DVT prophylaxis: Eliquis Diet: Cardiac diet CODE STATUS: DNR/DNI, this was discussed with patient while his was at bedside Attestations Medical Necessity Statement*: Observation due to malignant cancer with TIA and new onset atrial fibrillation, expected stay less than 2 midnights Coding Level of Care Code 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
--- NOTE | 2019-05-03 15:19 | PC.NURSE ---
Pt provided with sack lunch and orange juice per request.
--- NOTE | 2019-05-03 16:55 | PC.NURSE ---
Pt updated on wait to go upstairs for room. No needs at this time, call light in reach.
--- NOTE | 2019-05-03 17:54 | ECG_ITS ---
Measurements Intervals [place] Rate: 120 P: 67 WV: 176 QRS: 65 QRSD: 93 T: -83 QT: 285 QTc: 404 Possible multifocal atrial tachycardia with frequent PVCs. ST DEVIATION AND MODERATE T-WAVE ABNORMALITY, CONSIDER LATERAL ISCHEMIA [-0.1+ mV T WAVE IN I/aVL/V5/V6] ST DEVIATION AND MODERATE T-WAVE ABNORMALITY, CONSIDER INFERIOR ISCHEMIA [-0.1+ mV T WAVE IN II/aVF] Compared to ECG 11/02/2018 06:08:37 Sinus rhythm no longer present Myocardial infarct finding no longer present T-wave abnormality still present Possible ischemia still present Electronically Signed On 05-03-2019 20:15:41 MAMMOGRAPHY TECH by Derek Drummond M.D. [id number]
--- NOTE | 2019-05-03 17:54 | USCV_ITS ---
Phylicia Juan Age: 83 Gender: M : 1935 Exam Date: 05/03/2019 18:15 Ordering Phys: Nati Ortiz DO Technologist: Disha Garcia [place] [facility] [place]: TIA Risk Factors: Previous Vascular Surgery: Right Brachial BP: / Left Brachial BP: / Right Left Velocity (cm/s) Spectral Plaque Velocity (cm/s) Spectral Plaque Syst/Diast Broadening Syst/Diast Broadening 74.30/ 15.20 Prox CCA 57.30 / 10.70 67.20/ 17.00 Mid CCA 54.60 / 13.40 48.40/ 10.70 Distal CCA 47.50 / 10.70 86.90/ 19.70 Prox ICA 66.70 / 20.60 95.80/ 26.90 Mid ICA 56.10 / 18.10 77.90/ 24.20 Distal ICA 40.40 / 15.10 62.70 ECA 59.80 1.43 ICA/CCA 1.22 Antegrade Vertebral Antegrade 49.20/ 10.70 cm/s 20.00/ 6.80 cm/s Tri Subclavian Tri 47.50 58.90 FINDINGS Comparison: none available. No significant elevation of systolic or diastolic velocities. Diffuse bilateral scattered calcified plaque and intimal thickening throughout the common carotid arteries and extending through the bifurcation. Bilateral antegrade vertebral arteries. Variable wavefoms from cardiac arrythmia. CONCLUSIONS Bilateral ICA stenosis less than 50%. Mild diffuse atherosclerosis carotid arteries. Dr. Gretchen Alanis DO (Electronically Signed) Final Date: 04 May 2019 11:22 S
[2019-05-03] MEDS: apixaban 5 mg Tablet 2.5 MG PO (18:42)
--- NOTE | 2019-05-03 19:00 | PC.NURSE ---
Introduction of staff and report received, aidet.
[2019-05-03 19:31] LABS: Chol HDL Ratio 2.98 mg/dL (1.0-5.00); Cholesterol 146 mg/dL (0-200); HDL Cholesterol 49 mg/dL (60-100); LDL Cholesterol Calculated 63 mg/dL (50-129); LDL HDL Ratio 1.29 RATIO (0.00-3.22); Thyroid Stimulating Hormone 2.26 uIU/mL (0.27-4.20); Triglycerides 171 mg/dL (0-150)
[2019-05-03 19:36] LABS: Estmated Average Glucose 137; Hemoglobin A1C 6.4 % (4.0-6.0)
[2019-05-03] MEDS: atorvastatin 40 mg Tablet 80 MG PO (21:22)
[2019-05-04] VITALS: BP 120/70; PULSE 115; RESP 24; TEMP 36.7; O2SAT 94
[2019-05-04 04:00] VITALS: BP 91/56; PULSE 115; RESP 17; TEMP 36.8; O2SAT 94
[2019-05-04 07:37] VITALS: BP 117/62; PULSE 114; RESP 20; TEMP 36.7; O2SAT 95
[2019-05-04 09:05] VITALS: PULSE 63; O2SAT 92
--- NOTE | 2019-05-04 09:17 | ECG_ITS ---
Measurements Intervals [place] Rate: 104 P: 69 UT: 185 QRS: 66 QRSD: 97 T: -69 QT: 328 QTc: 432 Multifocal atrial tachycardia WITH FREQUENT VENTRICULAR PREMATURE COMPLEXES LEFT VENTRICULAR HYPERTROPHY AND ST-T CHANGE [VOLTAGE CRITERIA PLUS ST/T ABNORMALITY] Compared to ECG 05/03/2019 18:04:26 Left ventricular hypertrophy now present ST (T wave) deviation now present T-wave abnormality no longer present Possible ischemia no longer present Electronically Signed On 05-04-2019 20:59:28 PHYSICAL TRAINER by Derek Drummond M.D. [id number]
[2019-05-04] MEDS: aspirin 81 mg EC Tablet PO (09:43)
[2019-05-04] MEDS: lisinopril 2.5 mg Tablet PO (09:43)
[2019-05-04] MEDS: apixaban 5 mg Tablet 2.5 MG PO (09:43)
[2019-05-04] MEDS: predniSONE 20 mg Tablet PO (09:43)
[2019-05-04] MEDS: metoprolol tartrate 25 mg Tablet PO (09:44)
[2019-05-04 11:05] VITALS: BP 103/66; PULSE 91; RESP 18; TEMP 36.9; O2SAT 94
--- NOTE | 2019-05-04 11:24 | PC.CHAP ---
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 ladle builder visit [] Patient/Family/Request visit [] Outpatient visit [] Follow-up visit [] Physician referral [] Code/Alert [x] Routine visit [] Staff referral [] Actively dying [] Patient sleeping [] Family support [] [] Out of room [] Palliative care [] [] Receiving care in room [] Pre-surgical visit [] Trauma [] Long length of stay [] ICU visit [] Other: Relational/Emotional Strength [x] Patient feels connected with others/family/visitors/staff [] Distress [] Loneliness/isolation [] Abandonment Spirituality of Patient [x] Person of Jana [x] Attends Evangelical of their Jana [x] Believes in Prayer [] Reads Bible or Congregational materials [] There are Spiritual issues to be addressed Lead Cytogenetic Technologist Interventions [x] Prayer [] Active listening [] Non-anxious presence [] Spiritual/emotional support [] Crisis/trauma care [] Spiritual counseling [] Bereavement support [] Provided bereavement packet [] Provided Bible/devotional materials [] Provided toy/stuffed animal, coloring book to patient or family member [] Provided Communion [] Anointing/[place] [] Salvation [x] Completed spiritual assessment [] Other: Impact on Illness or Injury [] Angry [] Fearful [] Anxious [] Often cries [] Exhaustion [] Unable to work [] Unable to attend lutheran [] Unable to walk/stand [] Unable to read [] Unable to drive [] Unable to eat/drink [] Unable to sleep [] Unable to be with family [] Patient intubated [] Other: Summary 1 visitor patient in good spirets feeling better 10 min Time spent with patient
--- NOTE | 2019-05-04 11:55 | P.DS_ITS ---
Discharge Providers Date of Admission: 05/03/19 14:23 Date of Discharge: May 04, 2019 Attending Provider at Admission: Nati Ortiz DO Attending Provider at Discharge: Nati Ortiz DO Primary Care Provider: Norris Rowland MD,PhD Diagnoses at Discharge Discharge Diagnosis (1) TIA (transient ischemic attack): Status: Acute Problem details: Patient's left-sided weakness and expressive aphasia have resolved Intermittent atrial fibrillation Started on Eliquis 2.5 mg twice daily, decreased dose due to age and renal function Continue on aspirin and increased statin intensity Holter monitor ordered and recommend outpatient cardiology follow-up as scheduled on 05/09/[address] 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 Followed by Dr. Farrar (3) Hyperlipidemia: Status: Acute Problem details: Discontinue simvastatin and started on atorvastatin, increased intensity of statin (4) HTN (hypertension): Status: Acute Problem details: Continue home metoprolol and lisinopril (5) Chronic kidney disease: Status: Acute Problem details: Renal function appears to be at baseline (6) Coronary artery disease: Status: Acute Problem details: Denies any chest pain or shortness of breath, recommend outpatient follow-up with Dr. Mendez on 05/09/2019 (7) Atrial fibrillation: Status: Acute Problem details: Paroxysmal atrial fibrillation, patient does have frequent PACs. Started on Eliquis 2.5 mg twice daily and continue on metoprolol 25 mg daily. Follow-up with cardiology, Dr. Mendez as scheduled on 05/09/2019. Further evaluate with Holter monitor Reason for Visit Reason for Visit: Reason For Visit: Poss. TIA this morning Hospital Course Hospital Course: Patient was seen and evaluated in the emergency department noted to have concern for left-sided weakness and paresthesias along with expressive aphasia. His symptoms resolved while he was in the emergency department. He had a CT scan of his head which showed no acute intracranial abnormality. He was admitted for observation due to concern for TIA with annual diagnosis of atrial fibrillation. Patient was initially in atrial fibrillation then converted to normal sinus rhythm with frequent PACs. He was continued on his home metoprolol. Statin intensity was increased to atorvastatin, high intensity statin therapy. He was started on Eliquis 2.5 mg twice daily. On date of discharge patient denied any concerns, no chest pain or shortness of breath, no abdominal pain, no paresthesias or weakness, denied any headaches or vision changes. Discussed with patient pending echocardiogram and he reported that he wants to discharge to home, does not wish to follow-up on this result at this time, he has follow-up with his respiratory care instructor scheduled on 05/09/2019, Dr. Mendez. Discussed with him initiation of anticoagulation, he verbalized understanding and agreed with plan Discharge Summary: Discharge to home with spouse Continue with current home health through [facility] Follow-up with primary care provider in 3 to 5 days Follow-up with cardiology as scheduled on 05/09/2019 Physical Exam Const: COMMON NORMALS: oriented x3 and alert GENERAL APPEARANCE: cooperative ORIENTATION/CONSCIOUSNESS: Yes awake, Yes oriented to person, Yes oriented to place and Yes oriented to time HENMT: COMMON NORMALS: normocephalic and head/scalp atraumatic HEAD & SCALP: normocephalic and atraumatic Eye: COMMON NORMALS: PERRL PUPIL: Yes PERRL Neck/C-Spine: COMMON NORMALS: supple GENERAL: Yes normal visual inspection Resp: COMMON NORMALS: clear to auscultation bilaterally AUSCULTATION: clear to auscultation bilaterally OTHER: Respirations even and unlabored, dimi nished breath sounds in the right chest, no wheezing or rhonchi. Cardio: OTHER: regular rate without murmur GI: COMMON NORMALS: soft to palpation and non-tender INSPECTION: No abdominal distension AUSCULTATION: Yes normoactive bowel sounds PALPATION: Yes soft Extremity: COMMON NORMALS: no clubbing, cyanosis or edema and no calf tenderness Neuro: COMMON NORMALS: oriented x3, CN's II-XII intact bilaterally, moves all extremities and no focal motor deficits SENSORIUM/ORIENTATION: Yes alert, Yes oriented to person, Yes oriented to place and Yes oriented to time SPEECH: speech normal Psych: COMMON NORMALS: mental status grossly normal and cooperative Skin: COMMON NORMALS: no rashes or lesions noted GENERAL SKIN EXAM: no rashes or lesions noted Discharge Data Data Completed and Pending: Completed Studies During Hospitalization Category Date Time Status CT head wo con* 7 0450 Urgent Cat Scan 05/03/19 11:39 Completed XR chest 1V charles ble [id number] Stat Exams 05/03/19 10:58 Completed CV carotid duplex BI* [id number] Routine Ultrasound 05/03/19 17:54 Completed Pending at discharge Category Date Time Status CV echo complete* [id number] Urgent Ultrasound 05/03/19 12:20 Taken Labs from last 24 hours 05/03/19 05/03/19 05/03/19 12:05 11:05 11:05 Estimat Average Gl ucose 137 Hemoglobin A1c 6.4 H Triglycerides 171 H Cholesterol 146 LDL Cholesterol, C alc 63 HDL Cholesterol 49 L LDL/HDL Ratio 1.29 Cholesterol/HDL Ra michelle 2.98 TSH 2.26 Urine Color Yellow Urine Appearance Clear Urine pH 5 Ur Specific Gravit y 1.020 Urine Protein Neg Urine Glucose (UA) Norm Urine Ketones Negative Urine Occult Blood Neg Urine Nitrate Negative Urine Bilirubin Neg Urine Urobilinogen Norm Ur Leukocyte Charity ase Negative Vitals: Last Vital Signs Temp 98.4 F 05/04/19 11:05 Pulse 91 05/04/19 11:05 Resp 18 05/04/19 11:05 BP 103/66 05/04/19 11:05 Pulse Ox 94 05/04/19 11:05 Discharge Plan Discharge Patient Disposition: Home Health Service Condition: Fair Prescriptions: New atorvastatin 40 mg Tablet 80 mg PO BEDTIME 30 Days Qty: 60 RF: 0 Eliquis 5 mg Tablet 2.5 mg PO BID 30 Days Qty: 30 RF: 0 Continued lisinopril 2.5 mg tablet 2.5 mg PO DAILY RF: 0 prednisone 10 mg tablet 20 mg PO DAILY RF: 0 metoprolol tartrate 25 mg tablet 25 mg PO DAILY RF: 0 aspirin [Adult Aspirin Regimen] 81 mg tablet,delayed release (DR/EC) 81 mg PO QDAY RF: 0 melatonin 1 tab PO BEDTIME PRN (Reason: Sleep) RF: 0 Discontinued simvastatin 20 mg tablet 20 mg PO DAILY RF: 0 Discharge Orders: Discharge Order (Routine); Ordered 05/04/19 Ordered By: Nati Ortiz Other Ambulatory Orders: Holter Monitor (Routine) Timeframe: 2 Days Facility: [facility] - Location: Cardiology Outpatients Ordered By: Nati Ortiz Referrals: Teri Hernandez FNP [Family Provider] - 1-3 days Norris Rowland [Primary Care Provider] - (Follow-up as previously scheduled) Ramy Mendez MD [Physician] - 4-7 days Amado Farrar MD [Hospitalist] - 2 weeks (Follow-up in 2 to 4 weeks, or as previously scheduled) Discharge Diet: Advance as tolerated and Cardiac Discharge Activity: Increase activity as tolerated Activity Restrictions/Additional Instructions: Started on Eliquis 2.5 mg twice daily. This is a blood thinner as discussed, monitor for any signs of bleeding, for any dark or tarry like stools please present to the emergency department. Also made medication adjustment, discontinued simvastatin and started on atorvastatin, high intensity statin therapy. Recommend to have Holter monitor and close follow-up with cardiology as scheduled next week on 05/09/2019. Call your physician or present to the ER for any acute illness or concern Discharge Attestations Time Spent in Discharge Care*: greater than 30 min Quality Metrics Clinical Quality Measures During this hospital stay, did patient experience: None Coding Level of Care Code Acute Primary Operator for Hollie Corralesd Diagnoses TIA (transient ischemic attack) G45.9 Lung cancer C34.90 Hyperlipidemia E78.5 HTN (hypertension) I10 Chronic kidney disease N18.9 Coronary artery disease I25.10 Atrial fibrillation I48.91
[2019-05-04 12:17] VITALS: BP 103/66; PULSE 91; RESP 18; TEMP 36.9; O2SAT 94
--- NOTE | 2019-05-05 09:26 | PC.SOCIAL ---
Eliquis is not covered by ins plan. per Dr Ortiz okay to change to Xarelto 15mg once daily. Updated pharmacy of change. There was a question about the Atorvastatin however this has been resolved and patient picked up with $0 co pay. Xarelto will be $8 copay.
== END 2019-05-04 13:26 | disposition home health service (06) ==
LOC: ER 13:22 → MEDSURG 16:26
PROVIDERS: Admitting Provider Family Medicine; Emergency Provider Family Medicine; Family Provider Nurse Practitioner Family; PCP Radiology Radiation Oncology; Visit Provider Family Medicine
DX: G45.9 Transient cerebral ischemic attack, unspecified (principal); C34.90 Malignant neoplasm of unspecified part of unspecified bronchus or lung; E78.5 Hyperlipidemia, unspecified; I12.9 Hypertensive chronic kidney disease with stage 1 through stage 4 chronic kidney disease, or unspecified chronic kidney disease; N18.9 Chronic kidney disease, unspecified; I25.10 Atherosclerotic heart disease of native coronary artery without angina pectoris; I48.91 Unspecified atrial fibrillation; M06.9 Rheumatoid arthritis, unspecified; Z92.3 Personal history of irradiation; Z79.82 Long term (current) use of aspirin
CPT/HCPCS: 12345; 36415; 36416; 70450; 71045; 80053; 80061; 81003; 82962; 83036; 84443; 85025; 85610; 85730; 93005; 93306; 93880; 96361; 96374; 99284; 99285; G0378; J7040; J7512

== ENCOUNTER → 2019-05-18 09:05 | Outpatient (BNVA) | payer MEDICARE, OTHER, SELFPAY | PROVIDERS: Family Provider Nurse Practitioner Family; PCP Nurse Practitioner Family; Referring Provider Nurse Practitioner Family; Visit Provider Podiatrist Foot & Ankle Surgery | DX: Q66.72 Congenital pes cavus, left foot (principal); Q66.71 Congenital pes cavus, right foot; Z89.421 Acquired absence of other right toe(s); M77.31 Calcaneal spur, right foot | CPT/HCPCS: 73630 ==

== ENCOUNTER 2019-05-30 05:39 | Outpatient (RCR) | payer MEDICARE, OTHER, SELFPAY ==
--- NOTE | 2019-05-23 13:27 | CT_ITS ---
WS: [id number] CTA scan of the chest with IV contrast. Additional two-dimensional coronal and sagittal reconstructio n and MIP images was performed. 05/23/2019 Clinical Data: HEMOPTYSIS Comparison: CT chest, 02/21/2019. DLP: 553.[address] scans at [facility] use at least one of these dose optimization techniques: automat ed exposure control; mA and/or kV adjustment per patient size (includes targeted exams where dose is matched to clinical indication); or iterative reconstruction. Findings: The central pulmonary arteries and peripheral pulmonary arteries fill normally with no evidence of in termittent luminal filling defects. No pulmonary embolic disease is noted. The volume loss in the right lower lobe along with a right pleural effusion remain the same. It is th ickening of the right pleura. The mass associated with the right upper lobe has increased. There are numerous nodules throughout both lungs most obvious in the left lung which have increased in number a nd size. There is a small left effusion. There is a shift of the heart and mediastinum from left to r ight. The heart is normal in size with a pericardial effusion. There is coronary artery calcification . The thoracic aorta shows minimal to moderate calcification in the arch and the wall of the descendi ng thoracic aorta. The trachea bifurcates normally into the bronchi. The mediastinal, hilar and subca rinal and adenopathy have not changed The upper abdomen shows no abnormalities. The visualized liver, spleen, pancreas, gallbladder, adrena l glands and superior poles of the kidneys are not remarkable. The bones of the thoracic and upper lumbar spine show osteoarthritis and osteoporosis of the thoracic vertebral bodies. No metastatic lesions are seen. CT/CT angio chest PE protcl [id number] Impression: 1. Negative for definite pulmonary embolic disease. 2. Right upper lobe mass has increased in size. 3. Bilateral lung nodules have increased in number and size. 4. No change in right pleural thickening, right pleural effusion and pericardia l effusion. 5. Small left pleural effusion.
[2019-05-23] MEDS: iodixanol 320 mg/mL 100mL Btl IV (14:05)
[2019-05-25 14:47] LABS: Basophils % 0.2 %; Eosinophils # 0.1 10^3/uL (0.0-0.8); Eosinophils % 0.5 %; Hematocrit 38.9 % (42.0-52.0); Hemoglobin 11.5 g/dL (11.7-16.6); Lymphocytes # 0.8 10^3/uL (0.8-4.8); Lymphocytes % 7.6 %; Mean Corpuscular HGB Conc 29.6 g/dL (30.0-36.0); Mean Corpuscular Hemoglobin 27.9 pg (28.0-34.0); Mean Corpuscular Volume 94.4 fL (80-94); Mean Platelet Volume 10.5 fL (7.4-10.4); Monocytes # 0.7 10^3/uL (0.2-0.9); Monocytes % 7.2 %; Neutrophils # 8.4 10^3/uL (1.8-7.7); Nucleated Red Blood Cells % 0 %; Platelet Count 320 10^3/cmm (130-400); Red Blood Count 4.12 10^6/uL (4.1-5.3)
[2019-05-25 15:05] LABS: Alanine Aminotransferase 16 U/L (0-41); Albumin Level 2.7 g/dL (3.5-5.2); Alkaline Phosphatase 135 IU/L (40-130); Anion Gap 16.9 (5-19); Aspartate Amino Transferase 27 U/L (0-40); Blood Urea Nitrogen 26 mg/dL (8-23); Calcium 9.3 mg/dL (8.5-10.5); Carbon Dioxide 26 mmol/L (22-29); Chloride 101 mmol/L (98-107); Globulin 3.5 g/dL (1.3-4.6); Glucose 130 mg/dL (65-115); Potassium 4.9 mmol/L (3.5-5.1); Sodium 139 mmol/L (136-145); Total Bilirubin 0.8 mg/dL (0.15-1.2); Total Protein 6.2 g/dL (6.6-8.7)
--- NOTE | 2019-05-30 13:10 | ONC FU_ITS ---
Dr. Farrar Patient Follow-Up Note Patient: Juan Whatley Unit #: [id number]: [id number] Dicatated By: Amado Farrar M.D.Date of Visit:May 30, 2019 Onc Med Follow-up/Prog Note Chief Complaint: Lung cancer. 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 He has had subsequent progression to stage IV (M1b) with malignant pleural effusion, biopsy-proven mediastinal lymph node involvement, and suspected bone involvement by PET/CT. 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 On 05/28/2012 he underwent cervical mediastinoscopy, thoracic lymphadenectomy, and robotic right middle lobectomy for moderately differentiated adenocarcinoma involving the middle lobe of the left lung. His disease was stage IA (pT2a, pN0, M0). 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 He had otherwise done well until May 2018 when his surveillance chest CT scan showed a new moderate to large right pleural effusion with bilateral indeterminate pulmonary micronodules and an increase in subcarinal adenopathy as well as adenopathy in the AP window. He underwent thoracentesis on 06/30/2018 with pleural fluid cytology suspicious for non-small cell carcinoma. On 01/13/2019 he underwent bronchoscopy with EBUS and biopsies of multiple lymph nodes. Pathology showed metastatic moderately differentiated adenocarcinoma involving station 4R, station 7, and station 10 R lymph nodes. 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 A BRAF mutation was not detected, and the ROS1 gene arrangement was not detected. PD-L1 expression was detected in 0% of tumor cells and and in 30% of tumor associated immune cells. He then underwent placement of a pleural drainage catheter in the right chest. On 08/24/2018 he began treatment with osimertinib 80 mg daily. As of 09/22/2018 the osimertinib was put on hold due to nausea/vomiting and weight loss. He was off for about a week, and his symptoms improved. He then restarted treatment concurrently with ondansetron. I had seen him initially on 10/18/2018, as he had desired to continue his treatment closer to home. At that point he was having some nausea with the osimertinib. He still had a pleural drainage catheter in place, with about 300 mL of fluid out once a week. He opted to continue taking it at 80 mg daily. His other medical illnesses include hypertension, hyperlipidemia, chronic kidney disease, and coronary artery disease. He has had previous myocardial infarction and angioplasty/stent placement. He has history of rheumatoid arthritis, for which he had previously been on treatment with methotrexate. 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 He is a nonsmoker. INTERIM HISTORY: On 10/25/2018 he returned to the office with severe nausea/vomiting. He was given IV fluids and IV anti-emetics daily for 2 days and then again on the following Thursday. During that time the osimertinib was put on hold, and I also had him start prednisone 10 mg twice a day. On 11/01/2018 he was admitted to the hospital after presenting to the emergency room with increased shortness of breath and chest discomfort. He had a slightly elevated troponin T, consistent with non-ST elevation myocardial infarction. His echocardiogram showed hypokinesis of the apex and anterior wall suggesting an infarct in the LAD distribution. The ejection fraction was estimated in the range of 35-40%. The only prior study available was a sestamibi stress test from February 2016 which reported an ejection fraction of 58%. His pleural fluid drainage had increased significantly, requiring it to be drained on a daily basis. He opted to have conservative management. He was discharged home on metoprolol 25 mg twice a day together with isosorbide mononitrate 30 mg daily and 325 mg of aspirin daily. He was seen for a follow-up visit on 11/05/2018. At that point he still had very poor performance status. He continued prednisone 10 mg twice a day, and I also had him start furosemide 20 mg daily and Marinol 2.5 mg twice a day. As his blood pressure was relatively low, I had him stop both the isosorbide mononitrate and the lisinopril. He had subsequently reduced the metoprolol dosage to 12.5 mg daily. He had ongoing problems with weakness and orthostatic lightheadedness, and he continued to have relatively low blood pressure. He then presented with significant worsening of shortness of breath. A CT pulmonary angiogram on 12/13/2018 showed no evidence of pulmonary embolism and there were no other acute findings. There was no change in the right pleural effusion and in the right lower lobe atelectasis. Repeat echocardiogram on 12/15/2018 showed mild diffuse hypokinesia of the left ventricle with ejection fraction estimated at 45-50%, improved compared to the study from 11/01/2018. During subsequent follow-up, he had felt somewhat better, and he ultimately did opt to begin a trial of immunotherapy with nivolumab a 2-week dosing schedule. He received his cycle 1 treatment on 12/22/2018. He tolerated with acceptable toxicity, and he continued with cycle 2 on 01/05/2019, with cycle 3 on 01/19/2019, and with cycle 4 on 02/02/2019. Restaging CT scans of the chest, abdomen, and pelvis on 02/21/2019 showed persistent atelectasis/consolidation in the right lower lobe as well as progression of neoplastic process involving the posterior medial margin of the right upper lobe. There was metastatic pleural thickening similar to the prior exam. There was loculated right pleural effusion and there was persistent mediastinal and right hilar lymphadenopathy. Also noted was increased in number and size of bilateral pulmonary parenchymal metastatic nodules. I had seen him for a follow-up visit on 02/23/2019. I reviewed the CT findings, and we discussed the fact that it did appear that his disease was showing progression. At that point he was still motivated to continue treatment, and he continued with cycle 5 of nivolumab. At his follow-up visit on 03/09/2019 his symptoms had obviously worsened, and there was further decline in his performance status. I recommended that he stop the immunotherapy. After review of his CT scans with Dr. Rowland, he was offered the option to undergo palliative radiation. He completed treatment on 04/20/2019, total dose 4500 cGy. He tolerated it well. CT pulmonary angiogram on 05/23/2019 showed no definite evidence for pulmonary embolic disease. There was increase in the size of the right upper lobe mass and there was increase in size and number of bilateral lung nodules, consistent with disease progression. There was no change in the right pleural thickening, right pleural effusion, and pericardial effusion. Also noted was a small left effusion. He is seen for a follow-up visit. He had called last week reporting that his cough had increased that he was also coughing up some blood. With the CT findings, he was started on empiric antibiotic coverage with Levaquin. Since then he has continued to cough up some yellow-colored sputum, but he is no longer coughing up blood. He has a little bit of pain in the center of his chest. He is short of breath with activity. He is doing just a little bit of light work at home, but he says he walking quite a bit. ECOG score is 2. His appetite is pretty good. His weight is stable. He has no fever or night sweats. His bowel function is so-so. He has no other GI or complaints. He has no significant joint or bone pain. He does not complain of headache. He does have some numbness in his feet. Medications: Acetaminophen 1 Tablet (of 500 mg) Oral daily, Aspirin 1 Tablet (of 81 mg) Oral at bedtime, Metoprolol Tartrate 0.5 Tablet (of 25 mg) Oral daily, predniSONE 1 Tablet (of 10 mg) Oral daily Allergies: No Known Allergies. Review of Systems: Constitutional - His energy level is starting to improve. He is able to do only a little bit of light work around the house, but he is walking quite a bit. His appetite is good and his weight is stable. No fever, chills, hot flashes, or night sweats. ECOG score is 2, ENMT - He has sinus congestion/drainage. No mouth sores. No sore throat or difficulty swallowing, Hematologic/Lymphatic - He bruises easily, Respiratory - He has shortness of breath with exertion. He has a productive cough with yellow mucus which he states has improved after taking antibiotics. No pleuritic pain. He was having hemoptysis. It also has improved, Cardiovascular - He has some lower chest/epigastric pain. No palpitations, Gastrointestinal - No nausea or vomiting. No heartburn or acid reflux. His bowel function ois so-so. No blood in the stool or black stools, Genitourinary (M) - No dysuria or hematuria. No urinary frequency. No urgency or incontinence, Musculoskeletal - No joint or bone pain, Integumentary - No skin complications, Neurologic - No headache. He has some light headed-ness when he stands up. He has some numbness/tingling in his feet, Psychiatric - He has some anxiety/depression. No insomnia. Vital Signs: Performed on May 30, 2019 12:26 Height - 70.00 in Weight - 155.6 lbs (LOW) BSA - 1.88 sq.m BMI - 22.33 Temperature - 98.3 F (LOW) Pulse - 104 /min (HIGH) Respiration - 18 /min BP - 124/72 mm(hg) O2 Sat - 96 % Pain - 0 Physical Examination: Constitutional - He appears somewhat weak generally, Eyes - Sclerae nonicteric. Conjunctivae clear, ENMT - No lesions noted in the oral cavity, Hematologic/Lymphatic - No cervical, clavicular, or axillary adenopathy, Respiratory - Lungs show diminished air movement bilaterally, worse on the right, Cardiovascular - Heart rhythm is irregular. The rate is controlled. There is no murmur, gallop, or rub noted, Abdomen - Soft. Liver and spleen are not enlarged. There is no abdominal mass or ascites noted and there is no inguinal adenopathy, Extremities - Mild edema, worse on the left, Neurologic - No focal neurologic deficits noted. Lab/Imaging: Test performed on May 25, 2019 10:55 Sodium 139 mmol/L Potassium 4.9 mmol/L Chloride 101 mmol/L CO2 26 mmol/L Anion Gap 16.9 BUN 26 mg/dL Creatinine 1.6 mg/dL Cr Clearance (Est) 34.3500 mL/min Glucose 130 mg/dL Calcium 9.3 mg/dL Protein, Total 6.2 g/dL Albumin 2.7 g/dL Globulin 3.5 g/dL Bilirubin, Total 0.8 mg/dL ALT (SGPT) 16 U/L AST (SGOT) 27 U/L Alkaline Phosphatase 135 IU/L WBC 10.0 10 3/uL RBC 4.12 10 6/uL HGB 11.5 g/dL HCT 38.9 % MCV 94.4 fL MCH 27.9 pg MCHC 29.6 g/dL RDW 16.0 % Platelet Count 320 10 3/cmm MPV 10.5 fL Neutrophils 8.4 10 3/uL Lymphocytes 0.8 10 3/uL Monocytes 0.7 10 3/uL Eosinophils 0.1 10 3/uL Basophils 0.0 10 3/uL Neutrophil % 84.0 % Lymphocyte % 7.6 % Monocyte % 7.2 % Eosinophil % 0.5 % Basophils % 0.2 % Impression: 1. 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 He underwent cervical mediastinoscopy, thoracic lymphadenectomy, and robotic right middle lobectomy on 05/28/2012. 2. He had subsequent progression to stage IV (M1b) with malignant pleural effusion, biopsy-proven mediastinal lymph node involvement, and suspected bone involvement by PET/CT. 3. 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 He began treatment with osimertinib on 08/24/2018. 4. 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 His other medical illnesses include: 5. Hypertension. 6. Hyperlipidemia. 7. Chronic kidney disease. 8. Coronary artery disease with previous myocardial infarction and angioplasty/stent placement. 9. History of rheumatoid arthritis, currently inactive. 10. Degenerative arthritis. 11. 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 He had initially attempted to continue his treatment with osimertinib 80 mg daily. As of 10/25/2018 it was put on hold due to severe nausea. On 11/01/2018 he was admitted to the hospital with suspected non-ST elevation myocardial infarction. His echocardiogram at that time showed severe left ventricular dysfunction with estimated ejection fraction 35-40%. The most likely cause would have been the underlying ischemic heart disease, though osimertinib also was a consideration, as it has a reported incidence of cardiomyopathy in the range of 3-4%. As such, the osimertinib was permanently discontinued. During follow-up he has shown gradual improvement in his appetite/oral intake and in his performance status. He continued to have relatively low blood pressure. He had come in earlier this week with increased shortness of breath. His CT pulmonary angiogram showed no pulmonary embolim or other acute findings. Right pleural effusion and right lower lobe atelectasis appeared stable. His echocardiogram does show significant improvement in the LV function, with his ejection fraction now estimated in the range of 45-50%. Overall, he continued to have fairly marginal performance status, but with those findings he opted to proceed with a trial of immunotherapy with nivolumab at a 2-week dosing schedule. He received cycle 1 on 12/22/2018. He tolerated it with acceptable toxicity, and he continued treatment at 2-week intervals. As of 02/02/2019 he had completed 4 cycles of treatment. His restaging CT scans on 02/21/2019 show some areas of disease progression, including development of bilateral pulmonary parenchymal nodules consistent with metastatic disease. His overall clinical status at that point appeared stable, and he opted to continue with cycle 5 of nivolumab. At his follow-up visit on 03/09/2019 his symptoms had worsened significantly, and he appeared to have a a significant decline in his performance status. At that point I had recommended stopping the immunotherapy. After reviewing his CT scans with Dr. Rowland, he was given the option to undergo palliative radiation to the right lung tumor. He completed treatment on 04/20/2019, total dose 4500 cGy. Initially he had shown significant clinical improvement with the radiation. However, as of last week he had called reporting increased cough and new onset of hemoptysis. CT pulmonary angiogram showed no definite evidence of pulmonary embolism. There was evidence of progression of the underlying malignancy with increase in the right upper lobe mass as well as increase in size and number of bilateral pulmonary nodules. He has had some symptomatic improvement after empiric antibiotic therapy with Levaquin. Plan: He will continue with further antibiotic coverage with Levaquin, as he does appear to have some component of bronchitis. I also will now have him start pulmonary nebulizers. With the onset of hemoptysis. He is off both apixaban and aspirin. We discussed options for further management of the lung cancer, which are very limited. One would be a trial of therapy with erlotinib, which appears to not have the cardiac risk that was associated with osimertinib. He would otherwise just continue with symptomatic/supportive care. At this point, with no other options available, he indicates that he is willing to try erlotinib. Signed By: Amado Farrar M.D. <<Signature on File>>
== END 2019-06-21 23:59 | disposition home or self-care (01) ==
LOC: ONCMED 05:39
PROVIDERS: Family Provider Nurse Practitioner Family; PCP Nurse Practitioner Family; Visit Provider Internal Medicine Medical Oncology
DX: C34.2 Malignant neoplasm of middle lobe, bronchus or lung (principal); C77.1 Secondary and unspecified malignant neoplasm of intrathoracic lymph nodes; C78.02 Secondary malignant neoplasm of left lung; R04.2 Hemoptysis; J40 Bronchitis, not specified as acute or chronic; J91.0 Malignant pleural effusion; I12.9 Hypertensive chronic kidney disease with stage 1 through stage 4 chronic kidney disease, or unspecified chronic kidney disease; E78.5 Hyperlipidemia, unspecified; N18.9 Chronic kidney disease, unspecified; I25.10 Atherosclerotic heart disease of native coronary artery without angina pectoris; I25.2 Old myocardial infarction; M06.9 Rheumatoid arthritis, unspecified; M48.061 Spinal stenosis, lumbar region without neurogenic claudication; Z79.899 Other long term (current) drug therapy; Z79.52 Long term (current) use of systemic steroids; Z79.82 Long term (current) use of aspirin; Z95.5 Presence of coronary angioplasty implant and graft; Z86.711 Personal history of pulmonary embolism; Z92.3 Personal history of irradiation; Z92.25 Personal history of immunosuppression therapy
CPT/HCPCS: 71275; 80053; 85025; 99214

== ENCOUNTER 2019-06-16 09:37 | Inpatient (IN) | payer MEDICARE, OTHER, SELFPAY ==
[2019-06-16] VITALS (8 sets, daily range): BP systolic 111–150; BP diastolic 62–93; PULSE 99–141; RESP 18–28; TEMP 36.8–37.3; O2SAT 85–98; BMI 22.2
--- NOTE | 2019-06-16 09:38 | ED_ITS ---
Entered by Rosangela Cuenca, acting as scribe for Cesar Charlton DO HPI - SOB/Dyspnea General: Chief Complaint: Shortness of Breath/Dyspnea Stated Complaint: SHORTNESS OF BREATH Time Seen by Provider: 06/16/19 09:37 Source: patient and EMS Mode of arrival: EMS Limitations: no limitations History of Present Illness: HPI Narrative: 83 yo male presents with shortness of breath. per pt this started 1 week ago. pt states he has been treated by antibiotics and other medications at [facility]. pt states they tried to continue seeing him on face time , but he was getting worse and they sent him home. pt has had increased swelling to bilateral legs. pt denies any other symptoms at this time. MD elicited complaint: shortness of breath and cough Pertinent past history: other (lung cancer) Onset (ago): week(s) (1 week ago) Context: recent illness Timing: constant and progressively worsening Severity: moderate Exacerbating factors: lying flat and deep breaths Relieving factors: oxygen and upright position Associated symptoms: Reports cough (yellow sputum); Deny abdominal pain, chest pain, fever(s), nausea or vomiting Treatment prior to arrival: oxygen (by EMS) Related Data: Home oxygen amount: none Review of Systems Const: Denies: fever, chills, body aches, change in appetite, fatigue or malaise ENMT: Denies: throat pain, ear pain, nasal discharge or nasal congestion Card: Denies: chest pain Resp: Reports: shortness of breath and productive cough GI: Denies: abdominal pain, nausea, vomiting, vomiting blood, coffee grounds in vomit, diarrhea, constipation, bloating, blood in stool or black tarry stool : Denies: flank pain, painful urination, urinary frequency or urinary urgency Skin/Breast: Denies: rash or itching PFSH ED PFSH: Medical History Anticoagulation adequate with anticoagulant therapy Chronic kidney disease Renal function appears to be at baseline Coronary artery disease Denies any chest pain or shortness of breath, recommend outpatient follow-up with Dr. 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 Followed by Dr. Farrar Myocardial infarction OA (osteoarthritis) of knee Osteoarthritis of hands, bilateral Rheumatoid arthritis Surgical History History of bronchoscopy 01/13/19 EBUS History of lobectomy of lung 05/28/2012 underwent cervical mediastinitis Sk[place], thoracic lymphadenectomy, robotic right middle lobectomy History of total right knee replacement Family History Mother Cancer Father Cancer Leukemia Social History Smoking and tobacco status: never smoked Alcohol intake: never Household members: spouse Marital status: History of recent travel: No Physical Exam Const: COMMON NORMALS: average body habitus, oriented x3 and alert GENERAL APPEARANCE: cooperative, comfortable, well kempt and well developed NUTRITIONAL APPEARANCE: obese ORIENTATION/CONSCIOUSNESS: Yes awake, Yes oriented to person and Yes oriented to place HENMT: COMMON NORMALS: normocephalic, head/scalp atraumatic, EAC's normal, TM's normal bilaterally, external nose normal, moist oral mucous membranes and oropharynx normal HEAD & SCALP: normocephalic and atraumatic NOSE: external nose normal EXTERNAL AUDITORY CANAL: EAC's normal TYMPANIC MEMBRANE: TM's normal bilaterally MOUTH: oral and palatal mucosa normal, lip normal and tongue normal THROAT: posterior oropharynx normal and tonsils normal Eye: COMMON NORMALS: PERRL, EOMs intact bilaterally, conjunctivae normal and no scleral icterus CONJUNCTIVA: Yes conjunctivae normal PUPIL: Yes PERRL Neck/C-Spine: COMMON NORMALS: full ROM, no lymphadenopathy, supple, no meningeal signs and thyroid normal THYROID: thyroid normal and asymmetrical Lymph: LYMPHATIC: no lymphadenopathy noted Cardio: COMMON NORMALS: regular rate and regular rhythm RATE: regular rate RHYTHM: regular rhythm HEART SOUNDS: no murmurs GI: COMMON NORMALS: normal to inspection, nondistended, normoactive bowel sounds, soft to palpation and no hepatosplenomegaly PALPATION: Yes soft and Yes no hepatosplenomegaly : COMMON NORMALS: Yes no CVA tenderness BLADDER/KIDNEY EXAM: Yes no CVA tenderness Back/Pelvis: COMMON NORMALS: no CVA tenderness LUMBAR SPINE/LOWER BACK: Yes normal to inspection Extremity: COMMON NORMALS: no calf tenderness GENERAL: Yes edema (bilateral legs) Neuro: COMMON NORMALS: oriented x3 SENSORIUM/ORIENTATION: Yes alert, Yes oriented to person and Yes oriented to place MENINGEAL SIGNS: Yes no meningeal signs Psych: APPEARANCE: Yes well kempt Skin: COMMON NORMALS: no rashes or lesions noted and skin turgor normal GENERAL SKIN EXAM: no rashes or lesions noted and turgor normal Course Vital Signs: Vital signs: Vital Signs Temperature 98.7 F 06/17/19 15:03 Pulse Rate 68 06/17/19 15:03 Respiratory Rate 22 H 06/17/19 15:03 Blood Pressure 104/68 06/17/19 15:03 Pulse Oximetry 94 06/17/19 15:03 MDM - SOB/Dyspnea MDM Narrative: Medical decision making narrative: Patient presents in acute congestive heart failure in addition that he has lung cancer with metastasis. He also has some atrial fibrillation some moderately rapid here in the emergency room. Discussed with Dr. Herbert we will go ahead and admit the patient for adjustment of his congestive heart failure medications. Additionally he has chronic renal disease which also be taken into account in his care changes. Lab Data: Labs: Lab Results 06/16/19 06/16/19 06/16/19 Range/Units 08:34 08:34 08:34 WBC 13.0 H (4.0-10.0) 10^3/ uL RBC 4.62 (4.1-5.3) 10^6/u L Hgb 13.6 (11.7-16.6) g/dL Hct 44.4 (42.0-52.0) % MCV 96.1 H (80-94) fL MCH 29.4 (28.0-34.0) pg MCHC 30.6 (30.0-36.0) g/dL RDW 16.4 H (12.1-15.1) % Plt Count 236 (130-400) 10^3/c mm MPV 10.5 H (7.4-10.4) fL Neut % (Auto) 76.0 % Lymph % (Auto) 14.1 % [place] % (Auto) 8.0 % Eos % (Auto) 1.1 % Baso % (Auto) 0.2 % Neut # (Auto) 9.9 H (1.8-7.7) 10^3/u L Lymph # (Auto) 1.8 (0.8-4.8) 10^3/u L [place] # (Auto) 1.0 H (0.2-0.9) 10^3/u L Eos # (Auto) 0.1 (0.0-0.8) 10^3/u L Baso # (Auto) 0.0 (0.0-0.1) 10^3/u L Nucleated RBC % (a uto) 0 % Nucleated RBCs # 0.0 /100WBC Sodium 140 (136-145) mmol/L Potassium 4.7 (3.5-5.1) mmol/L Chloride 99 (98-107) mmol/L Carbon Dioxide 28 (22-29) mmol/L Anion Gap 17.7 (5-19) BUN 30 H (8-23) mg/dL Creatinine 1.4 H (0.7-1.2) mg/dL Glucose 111 (65-115) mg/dL Calculated Osmolal ity 288 (285-295) mOsm/k g Calcium 9.5 (8.5-10.5) mg/dL Total Bilirubin 0.7 (0.15-1.2) mg/dL AST 32 (0-40) U/L ALT 22 (0-41) U/L Alkaline Phosphata se 138 H (40-130) IU/L Troponin T Baselin e 78 H (0-15) ng/mL Troponin T 120 Min wrangell (0-15) ng/mL Delta Troponin T (0-10) ABS# NT-Pro-B Natriuret Pep [id number] H (0-450) pg/mL Total Protein 5.8 L (6.6-8.7) g/dL Albumin 3.3 L (3.5-5.2) g/dL Globulin 2.5 (1.3-4.6) g/dL Urine Color (Yellow) Urine Appearance (CLEAR) Urine pH (5-7) Ur Specific Gravit y (1.005-1.030) Urine Protein (Negative) Urine Glucose (UA) (Normal) Urine Ketones (Negative) Urine Blood (Negative) Urine Nitrate (Negative) Urine Bilirubin (NEGATIVE) Urine Urobilinogen (Negative) mg/dL Ur Leukocyte Charity ase (Negative) Urine RBC (0-2) /hpf Urine WBC (0-5) /hpf Ur Squamous Epith Cells (0-5) Urine Bacteria (NONE) Hyaline Casts Nasal/Oral COVID-1 9 PCR Influenza Type A A g (Negative) POC Influenza B Ag (Negative) 06/16/19 06/16/19 06/16/19 Range/Units 11:15 11:15 11:32 WBC (4.0-10.0) 10^3/ uL RBC (4.1-5.3) 10^6/u L Hgb (11.7-16.6) g/dL Hct (42.0-52.0) % MCV (80-94) fL MCH (28.0-34.0) pg MCHC (30.0-36.0) g/dL RDW (12.1-15.1) % Plt Count (130-400) 10^3/c mm MPV (7.4-10.4) fL Neut % (Auto) % Lymph % (Auto) % [place] % (Auto) % Eos % (Auto) % Baso % (Auto) % Neut # (Auto) (1.8-7.7) 10^3/u L Lymph # (Auto) (0.8-4.8) 10^3/u L [place] # (Auto) (0.2-0.9) 10^3/u L Eos # (Auto) (0.0-0.8) 10^3/u L Baso # (Auto) (0.0-0.1) 10^3/u L Nucleated RBC % (a uto) % Nucleated RBCs # /100WBC Sodium (136-145) mmol/L Potassium (3.5-5.1) mmol/L Chloride (98-107) mmol/L Carbon Dioxide (22-29) mmol/L Anion Gap (5-19) BUN (8-23) mg/dL Creatinine (0.7-1.2) mg/dL Glucose (65-115) mg/dL Calculated Osmolal ity (285-295) mOsm/k g Calcium (8.5-10.5) mg/dL Total Bilirubin (0.15-1.2) mg/dL AST (0-40) U/L ALT (0-41) U/L Alkaline Phosphata se (40-130) IU/L Troponin T Baselin e (0-15) ng/mL Troponin T 120 Min wrangell 78.35 H (0-15) ng/mL Delta Troponin T 0.35 (0-10) ABS# NT-Pro-B Natriuret Pep (0-450) pg/mL Total Protein (6.6-8.7) g/dL Albumin (3.5-5.2) g/dL Globulin (1.3-4.6) g/dL Urine Color Yellow (Yellow) Urine Appearance Clear (CLEAR) Urine pH 5 (5-7) Ur Specific Gravit y 1.015 (1.005-1.030) Urine Protein Neg (Negative) Urine Glucose (UA) Norm (Normal) Urine Ketones Negative (Negative) Urine Blood 2+ H (Negative) Urine Nitrate Negative (Negative) Urine Bilirubin Neg (NEGATIVE) Urine Urobilinogen Norm (Negative) mg/dL Ur Leukocyte Charity ase Negative (Negative) Urine RBC 0-4 H (0-2) /hpf Urine WBC None (0-5) /hpf Ur Squamous Epith Cells 0-4 H (0-5) Urine Bacteria Trace (NONE) Hyaline Casts 0-4 H Nasal/Oral COVID-1 9 PCR Influenza Type A A g Negative (Negative) POC Influenza B Ag Negative (Negative) 06/16/19 Range/Units 13:10 WBC (4.0-10.0) 10^3/ uL RBC (4.1-5.3) 10^6/u L Hgb (11.7-16.6) g/dL Hct (42.0-52.0) % MCV (80-94) fL MCH (28.0-34.0) pg MCHC (30.0-36.0) g/dL RDW (12.1-15.1) % Plt Count (130-400) 10^3/c mm MPV (7.4-10.4) fL Neut % (Auto) % Lymph % (Auto) % [place] % (Auto) % Eos % (Auto) % Baso % (Auto) % Neut # (Auto) (1.8-7.7) 10^3/u L Lymph # (Auto) (0.8-4.8) 10^3/u L [place] # (Auto) (0.2-0.9) 10^3/u L Eos # (Auto) (0.0-0.8) 10^3/u L Baso # (Auto) (0.0-0.1) 10^3/u L Nucleated RBC % (a uto) % Nucleated RBCs # /100WBC Sodium (136-145) mmol/L Potassium (3.5-5.1) mmol/L Chloride (98-107) mmol/L Carbon Dioxide (22-29) mmol/L Anion Gap (5-19) BUN (8-23) mg/dL Creatinine (0.7-1.2) mg/dL Glucose (65-115) mg/dL Calculated Osmolal ity (285-295) mOsm/k g Calcium (8.5-10.5) mg/dL Total Bilirubin (0.15-1.2) mg/dL AST (0-40) U/L ALT (0-41) U/L Alkaline Phosphata se (40-130) IU/L Troponin T Baselin e (0-15) ng/mL Troponin T 120 Min wr[place]ell (0-15) ng/mL Delta Troponin T (0-10) ABS# NT-Pro-B Natriuret Pep (0-450) pg/mL Total Protein (6.6-8.7) g/dL Albumin (3.5-5.2) g/dL Globulin (1.3-4.6) g/dL Urine Color (Yellow) Urine Appearance (CLEAR) Urine pH (5-7) Ur Specific Gravit y (1.005-1.030) Urine Protein (Negative) Urine Glucose (UA) (Normal) Urine Ketones (Negative) Urine Blood (Negative) Urine Nitrate (Negative) Urine Bilirubin (NEGATIVE) Urine Urobilinogen (Negative) mg/dL Ur Leukocyte Charity ase (Negative) Urine RBC (0-2) /hpf Urine WBC (0-5) /hpf Ur Squamous Epith Cells (0-5) Urine Bacteria (NONE) Hyaline Casts Nasal/Oral COVID-1 9 PCR See comment Influenza Type A A g (Negative) POC Influenza B Ag (Negative) Imaging Data^: CXR: Radiologist's impression: [address] [place] [address] XRay Report Signed Patient: Juan Whatley #: [id number] : 5Acct#:[id number] Age/Sex: 83 / MADM Date: 06/16/19 Loc: ERRoom/Bed: Attending Dr: Ordering Provider/Ordering MD: Cesar Charlton DO Date of Service: 06/16/19 Procedure(s): XR chest 1V portable [id number] Accession Number(s): [id number] Report Number: [id number] WS: [id number] PORTABLE CHEST HISTORY: dyspnea/cough COMPARISON: 05/03/2019 New pulmonary venous congestion has developed since the prior study. Moderate venous congestion. Volume loss throughout the RIGHT thorax. There is a [id number] layering pleural effusion which is unchanged. There is pleural thickening and airspace disease at the lung bases. Dense consolidation in the lower lung field was noted to be related to pneumonia and lobar collapse on a prior CT. Cardiac size: Normal. Mediastinum/Aorta: Ectatic thoracic aorta. Increased opacification at the RIGHT hilum from atelectasis. Osteopenia. Prior LEFT rotator cuff repair. XR/XR chest 1V portable [id number] IMPRESSION: 1. Volume loss and pleural fluid in the RIGHT thorax is stable. 2. New pulmonary vascular congestion. Dictated By:Gretchen Alanis DO Signed By:Gretchen Alanis DOSigned Date/Time:06/16/19 1119 Discharge Plan Discharge Patient Disposition: Admitted As Inpatient Admit Provider: Luz Marcos Clinical Impression: Acute exacerbation of CHF (congestive heart failure), Lung cancer, Chronic kidney disease, Atrial fibrillation Condition: Stable Interventions: ED Discharge Assessment Last Done: 06/16/19 14:31 Discharge Date/Time: 06/16/19 14:55 Coding Level of Care Code ED Act English Tutor for Chg Fwd Exam Comprehensive The documentation recorded by the [employer] Bridget Annette, accurately reflects the service I personally performed and the decisions made by Latesha jay Curtis L, DO Jun 16, 2019 09:37
--- NOTE | 2019-06-16 10:39 | XR_ITS ---
WS: [id number] PORTABLE CHEST HISTORY: dyspnea/cough COMPARISON: 05/03/2019 New pulmonary venous congestion has developed since the prior study. Moderate venous congestion. Volu me loss throughout the RIGHT thorax. There is a [id number]-[id number] layering pleural effusion which is unchanged. There is pleural thickening and airspace disease at the lung bases. Dense consolidation in the lower lung field was noted to be related to pneumonia and lobar collapse on a prior CT. Cardiac size: Normal. Mediastinum/Aorta: Ectatic thoracic aorta. Increased opacification at the RIGHT hilum from atelectasi s. Osteopenia. Prior LEFT rotator cuff repair. XR/XR chest 1V portable [id number] IMPRESSION: 1. Volume loss and pleural fluid in the RIGHT thorax is stable. 2. New pulmonary vascular congestion.
--- NOTE | 2019-06-16 10:39 | ECG_ITS ---
Measurements Intervals [place] Rate: 112 P: 40 CT: 171 QRS: 15 QRSD: 87 T: -53 QT: 321 QTc: 439 POSSIBLE MULTIFOCAL TACHYCARDIA WITH OCCASIONAL VENTRICULAR PREMATURE COMPLEXES NONSPECIFIC T-WAVE ABNORMALITY Compared to ECG 05/04/2019 09:57:28 T-wave abnormality now present Left ventricular hypertrophy no longer present ST (T wave) deviation no longer present Electronically Signed On 06-16-2019 21:16:14 CDT by Vanessa Ch M.D. [email or web address]
[2019-06-16 10:49] LABS: Basophils % 0.2 %; Eosinophils # 0.1 10^3/uL (0.0-0.8); Eosinophils % 1.1 %; Hematocrit 44.4 % (42.0-52.0); Hemoglobin 13.6 g/dL (11.7-16.6); Lymphocytes # 1.8 10^3/uL (0.8-4.8); Lymphocytes % 14.1 %; Mean Corpuscular HGB Conc 30.6 g/dL (30.0-36.0); Mean Corpuscular Hemoglobin 29.4 pg (28.0-34.0); Mean Corpuscular Volume 96.1 fL (80-94); Mean Platelet Volume 10.5 fL (7.4-10.4); Neutrophils # 9.9 10^3/uL (1.8-7.7); Nucleated Red Blood Cells % 0 %; Platelet Count 236 10^3/cmm (130-400); Red Blood Count 4.62 10^6/uL (4.1-5.3); Red Cell Distribution Width 16.4 % (12.1-15.1)
[2019-06-16 11:00] LABS: Troponin(5th) Baseline 78 ng/mL (0-15)
[2019-06-16 11:08] LABS: Alanine Aminotransferase 22 U/L (0-41); Albumin Level 3.3 g/dL (3.5-5.2); Alkaline Phosphatase 138 IU/L (40-130); Anion Gap 17.7 (5-19); Aspartate Amino Transferase 32 U/L (0-40); Blood Urea Nitrogen 30 mg/dL (8-23); Calcium 9.5 mg/dL (8.5-10.5); Carbon Dioxide 28 mmol/L (22-29); Chloride 99 mmol/L (98-107); Globulin 2.5 g/dL (1.3-4.6); Glucose 111 mg/dL (65-115); NT Pro B Type Natriuretic Pept 14280 pg/mL (0-450); Osmolality Calculated 288 mOsm/kg (285-295); Potassium 4.7 mmol/L (3.5-5.1); Sodium 140 mmol/L (136-145); Total Bilirubin 0.7 mg/dL (0.15-1.2); Total Protein 5.8 g/dL (6.6-8.7)
[2019-06-16 11:40] LABS: Troponin 5 2HR 78.35 ng/mL (0-15); Troponin 5 2HR Delta 0.35 ABS# (0-10)
[2019-06-16 11:46] LABS: Influenza A by IFA Negative (Negative); Influenza B by IFA Negative (Negative)
[2019-06-16 12:15] LABS: Add Urine Microscopic? YES; Bilirubin Urine Neg (NEGATIVE); Blood Urine 2+ (Negative); Glucose Urine UA Norm (Normal); Ketones Urine Negative (Negative); Leukocyte Esterase Urine Negative (Negative); Nitrate Urine Negative (Negative); Protein Urine Neg (Negative); Specific Gravity, Urine 1.015 (1.005-1.030); Urine Appearance Clear (CLEAR); Urine Color Yellow (Yellow); Urobilinogen Urine Norm (Negative); pH Urine 5 (5-7)
[2019-06-16 12:22] LABS: Add Urine Culture? No; Bacteria Urine TRACE; Hyaline Casts Urine 0-4; RBC Urine 0-4 /hpf (0-2); Squamous Epithelial Cell Urine 0-4 (0-5)
--- NOTE | 2019-06-16 12:39 | ECG_ITS ---
Measurements Intervals [place] Rate: 112 P: 55 MD: 174 QRS: 43 QRSD: 94 T: 36 QT: 318 QTc: 436 MULTIFOCAL TACHYCARDIA WITH FREQUENT VENTRICULAR PREMATURE COMPLEXES NONSPECIFIC T-WAVE ABNORMALITY Compared to ECG 05/04/2019 09:57:28 T-wave abnormality now present Left ventricular hypertrophy no longer present ST (T wave) deviation no longer present Electronically Signed On 06-16-2019 21:21:12 CDT by Vanessa Ch M.D. [email or web address]
--- NOTE | 2019-06-16 14:50 | P.HP_ITS ---
Providers/Chief Complaint Admitting Physician: Luz Marcos MD Primary Care Provider: WILDER Frye Chief Complaint: SHORTNESS OF BREATH History of Present Illness Juan Whatley is a 83 year old male with PMHx of Chronic systolic CHF, Paroxysmal atrial fibrillation, Stage IV RML adenocarcinoma, CAD s/p angioplasty and stent placement, HTN, Hyperlipidemia; presents from home via EMS secondary to ongoing shortness of breath, lower extremity edema and noted hypoxia earlier today. History is obtained directly from patient and collateral information obtained from review of medical record. Patient was recently admitted to our facility in April when he was treated for TIA. He follows up with Dr. Farrar as his oncologist and with Dr. 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 He has documented previous history of hemoptysis and has been off aspirin and anticoagulation most recently has been on Eliquis. He states that over the past week he has had ongoing and increased lower extremity edema and over the past 3 to 4 days has had worsening shortness of breath, dyspnea even with minimal exertion, orthopnea to the point where he is spent several nights sleeping upright in a chair and a productive cough with yellow sputum. He denies any fever/chills, sick contacts, recent travel, nausea/vomiting, abdominal pain, blood in his urine or stool, hemoptysis, fall; reports a good appetite. Most recent echo was done in April 2019 showing an ejection fraction of 35% which is a noted drop from his previous echo showing an ejection fraction of 45 to 50%; he was also noted to have hypokinesia of the left ventricular wall and mild MR. He is currently on low-dose Lasix at 20 mg daily and metoprolol 12.5 mg daily which was changed from twice daily dosing secondary to hypotension. Work-up in the ER today indicates a white count of 13 with her neutrophilic predominance, normal hemoglobin at 13.6, BUN of 30, creatinine of 1.4 which appears to be around his baseline, BNP greater than 14,000, influenza negative, 2 troponins around 78 with no significant delta change, chest x-ray reported as indicative of pulmonary vascular congestion. Blood pressure is stable, heart rate is in the 120s-130s and rhythm is atrial fibrillation. ER physician Dr. Madera discussed CODE STATUS with patient and he is DNR/DNI. Secondary to his symptoms and underlying immunocompromise he has been screened for COVID-19 and is currently on droplet precautions. Patient has not been on any recent chemotherapy, prior oral chemotherapeutic agent (osimertinib) was discontinued secondary to noted drop in ejection fraction as could contribute to cardiomyopathy. Per last office visit with Dr. Farrar on 05/30/2019 plan was to try therapy with erlotinib though this has not been started yet. Patient is currently requiring about 2 L nasal cannula but does not appear to be in any acute distress as long as he is at rest. He has been admitted for further IV diuresis, telemetry and hemodynami c status monitoring. Review of Systems Const: Denies: fever, chills or change in appetite Eyes: Denies: change in vision ENMT: Denies: painful swallowing or dry mouth Card: Reports: edema (bilateral LEs), swelling of feet/ankles, shortness of breath on exertion and shortness of breath when lying down; Denies: chest pain, lightheadedness, syncope or pre-syncope Resp: Reports: shortness of breath and productive cough (yellow sputum); Denies: coughing up blood GI: Denies: abdominal pain, nausea, vomiting, vomiting blood or blood in stool : Denies: painful urination or urinary frequency Musc: Denies: back pain Skin/Breast: Denies: rash Neuro: Denies: numbness in extremities, weakness in extremities or difficulty walking Psych: Denies: anxiety Medications/Allergies Home Medications Medication Instructions Recorded Confirmed Last Taken Type Lasix 20 mg PO QAM 06/16/19 06/16/19 06/15/19 History acetaminophen [Tylenol Extra 500 mg PO DAILY PRN 06/16/19 06/16/19 06/15/19 History Strength] ipratropium-albuterol 3 ml INHALATION QID PRN 06/16/19 06/16/19 Unknown History Allergies Allergy/AdvReac Type Severity Reaction Status Date / Time No Known Allergies Allergy Verified 05/18/19 08:54 PFSH Acute PFSH: Medical History Anticoagulation adequate with anticoagulant therapy Chronic kidney disease Renal function appears to be at baseline Coronary artery disease Denies any chest pain or shortness of breath, recommend outpatient follow-up with Dr. 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 Fo llowed by Dr. Farrar Myocardial infarction OA (osteoarthritis) of knee Osteoarthritis of hands, bilateral Rheumatoid arthritis Surgical History History of bronchoscopy 01/13/19 EBUS History of lobectomy of lung 05/28/2012 underwent cervical mediastinitis [place], thoracic lymphadenectomy, robotic right middle lobectomy History of total right knee replacement Family History Mother Cancer Father Cancer Leukemia Social History Smoking and tobacco status: never smoked Alcohol intake: never Household members: spouse Marital status: History of recent travel: No Vitals/I&O/Wt Last Vital Signs Temp 98.5 F 06/16/19 09:37 Pulse 123 H 06/16/19 14:31 Resp 18 06/16/19 14:31 BP 135/82 06/16/19 14:31 Pulse Ox 97 06/16/19 14:31 Weight last 48 hrs Weight 70.307 kg Physical Exam Const: COMMON NORMALS: no apparent distress and oriented x3 GENERAL APPEARANCE: cooperative and comfortable ORIENTATION/CONSCIOUSNESS: Yes awake OTHER: -looks appropriate for age HENMT: COMMON NORMALS: normocephalic, head/scalp atraumatic, hearing grossly normal bilaterally and moist oral mucous membranes HEAD & SCALP: normocephalic and atraumatic Eye: COMMON NORMALS: PERRL, EOMs intact bilaterally and conjunctivae normal CONJUNCTIVA: Yes conjunctivae normal PUPIL: Yes PERRL Neck/C-Spine: COMMON NORMALS: full ROM GENERAL: Yes normal visual inspection and Yes trachea midline Resp: COMMON NORMALS: normal respiratory effort, no retractions and no use of accessory muscles EFFORT & INSPECTION: Yes able to speak in complete sentences, Yes symmetric chest movement, No tachypneic and Yes actively coughing non-productive OTHER: -equal air entry bilaterally, dyspneic with exertion, on 2 L NC Cardio: COMMON NORMALS: S1 normal heart sound, S2 normal heart sound and no murmurs RATE: tachycardic RHYTHM: abnormal rhythm irregularly irregular HEART SOUNDS: S1 normal and S2 normal GI: COMMON NORMALS: normal to inspection, nondistended, normoactive bowel sounds, soft to palpation and non-tender PALPATION: Yes soft Extremity: COMMON NORMALS: normal to inspection and full ROM NARRATIVE EXTREMITY EXAM: -noted pitting edema, 3+ of bilateral LEs from feet up to mid- cao level -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 Neuro: COMMON NORMALS: oriented x3, moves all extremities, no focal motor deficits and no sensory deficits noted Psych: COMMON NORMALS: mental status grossly normal, thought process normal, cooperative, affect normal and speech normal SPEECH: Yes normal speech THOUGHT PROCESS: normal thought process Skin: COMMON NORMALS: no rashes or lesions noted, no jaundice, no petechiae and no mottling GENERAL SKIN EXAM: no rashes or lesions noted Data : 06/16/19 08:34 06/16/19 08:34 A&P Assessment and plan (1) Acute exacerbation of CHF (congestive heart failure): -acute systolic CHF exacerbation as evidenced by dyspnea, orthopnea, LE edema, elevated BNP (14,280) -has been on low dose Lasix -due to renal impairment will start on IV diuresis with Bumex -daily weights, monitor Is & Os, monitor renal function, lytes -monitor vital signs -telemetry monitoring -Echo (04/2019): EF=35%, +hypokinesis, mild MR, trace AR -follows up with Dr. Mendez as an outpatient -per Oncology documentation, there was some concern that oral chemotherapy (Osimertinib) may have contributed to ventricular dysfunction so discontinued -patient has known CAD so likely ischemic in etiology Status: Acute Qualifiers: Heart failure type: systolic Qualified Code(s): I50.23 - Acute on chronic systolic (congestive) heart failure Code(s): I50.9 - Heart failure, unspecified (2) Lung cancer: -Patient has known moderately differentiated invasive adenocarcinoma of the right middle lobe, stage IV with suspected bone involvement -Follows up with Dr. Farrar -Not currently receiving treatment Status: Acute Qualifiers: Laterality: right Lung location: middle lobe of lung Qualified Code(s): C34.2 - Malignant neoplasm of middle lobe, bronchus or lung Code(s): C34.90 - Malignant neoplasm of unspecified part of unspecified bronchus or lung (3) HTN (hypertension): -Monitor vital signs, blood pressure currently within normal limits -Resume low-dose beta-javed, hold lisinopril secondary to renal impairment Status: Acute Qualifiers: Hypertension type: essential hypertension Qualified Code(s): I10 - Essential (primary) hypertension Code(s): I10 - Essential (primary) hypertension (4) Atrial fibrillation: -Has known history of paroxysmal atrial fibrillation -Had previously been on anticoagulation with Eliquis, aspirin both of which are discontinued due to ongoing hemoptysis -Rate controlled with low-dose metoprolol currently dosed at 12.5 mg daily; dose switched from twice daily dosing secondary to tendency towards hypotension -Patient follows up with Dr. Mendez as an outpatient -Currently in A. fib with RVR per court monitor -Resume metoprolol -Continue telemetry monitoring -Continue to monitor vital signs Status: Acute Qualifiers: Atrial fibrillation type: paroxysmal Qualified Code(s): I48.0 - Paroxysmal atrial fibrillation Code(s): I48.91 - Unspecified atrial fibrillation (5) Coronary artery disease: -Has known history of CAD status post angioplasty/stent placement -No active chest pain, troponins noted with no significant delta change Status: Acute Qualifiers: Coronary Disease-Associated Artery/Lesion type: unspecified vessel or lesion type [place] vs. transplanted heart: [place] heart Associated angina: angina presence unspecified Qualified Code(s): I25.10 - Atherosclerotic heart disease of [place] coronary artery without angina pectoris Code(s): I25.10 - Atherosclerotic heart disease of [place] coronary artery without angina pectoris (6) Chronic kidney disease: -Has known history of CKD stage 2-3; baseline Cr around 1.3-1.5 -continue to monitor renal function particularly with diuresis -renally dose meds, avoid nephrotoxins Status: Acute Qualifiers: Chronic kidney disease stage: unspecified stage Qualified Code(s): N18.9 - Chronic kidney disease, unspecified Code(s): N18.9 - Chronic kidney disease, unspecified (7) Hyperlipidemia: -on high intensity statin, resume Status: Acute Qualifiers: Hyperlipidemia type: unspecified Qualified Code(s): E78.5 - Hyperlipidemia, unspecified Code(s): E78.5 - Hyperlipidemia, unspecified Additional A&P Information -Advanced age -DJD of spine, OA; pain control as needed, usually ambulates independently, no recent falls -recent TIA (04/2019) -cardiac diet as tolerated -DVT ppx with heparin -Dispo: home, lives with -Code status: DNR/DNI, discussed by ED physician Dr. Charlton Attestations Medical Necessity Statement*: Juan Whatley's hospital stay will require greater than 2 midnights for management of acute CHF exacerbation requiring IV diuresis as well as atrial fibrillation with RVR. Time Spent in Patient Care: Greater than 35 minutes (>than 50% of time spent in counselling and/or direct pt care on unit) . Coding Level of Care Code Acute Side Puller for Chg Fwd Diagnoses Acute exacerbation of CHF (congestive heart failure) I50.23 Heart failure type: systolic Lung cancer C34.2 Laterality: right Lung location: middle lobe of lung HTN (hypertension) I10 Hypertension type: essential hypertension Atrial fibrillation I48.0 Atrial fibrillation type: paroxysmal Coronary artery disease I25.10 Coronary Disease-Associated Artery/Lesion type: unspecified vessel or lesion type [place] vs. transplanted heart: [place] heart Associated angina: angina presence unspecified Chronic kidney disease N18.9 Chronic kidney disease stage: unspecified stage Hyperlipidemia E78.5 Hyperlipidemia type: unspecified
[2019-06-16 15:16] LABS: Troponin 5 6HR 85.72 ng/mL (0-15); Troponin 5 6HR Delta 7.72 ng/L (0-12)
[2019-06-16] MEDS: bumetanide 0.25 mg/mL SDV 10 mL 1 MG IV (16:05)
[2019-06-16] MEDS: heparin 5,000 unit/mL INJ 1 mL 5000 UNIT SUBCUT ×2 (16:06→23:54)
--- NOTE | 2019-06-16 16:39 | ECG_ITS ---
Measurements Intervals [place] Rate: 126 P: 58 DE: 170 QRS: 43 QRSD: 102 T: 0 QT: 310 QTc: 449 MULTIFOCAL ATRIAL TACHYCARDIA WITH FREQUENT VENTRICULAR PREMATURE COMPLEXES NONSPECIFIC T-WAVE ABNORMALITY Compared to ECG 05/04/2019 09:57:28 T-wave abnormality now present Left ventricular hypertrophy no longer present ST (T wave) deviation no longer present Electronically Signed On 06-16-2019 21:17:52 CDT by Vanessa Ch M.D. [email or web address]
[2019-06-16] MEDS: metoprolol tartrate 25 mg Tablet 12.5 MG PO (20:45)
[2019-06-17] VITALS (7 sets, daily range): BP systolic 94–109; BP diastolic 53–73; PULSE 56–110; RESP 17–22; TEMP 36.6–37.3; O2SAT 93–97
[2019-06-17] MEDS: bumetanide 0.25 mg/mL SDV 10 mL 1 MG IV ×2 (04:04→16:54)
[2019-06-17 06:50] LABS: Basophils % 0.2 %; Eosinophils # 0.3 10^3/uL (0.0-0.8); Eosinophils % 2.6 %; Hematocrit 42.3 % (42.0-52.0); Hemoglobin 12.7 g/dL (11.7-16.6); Lymphocytes # 0.9 10^3/uL (0.8-4.8); Lymphocytes % 8.2 %; Mean Corpuscular Hemoglobin 28.7 pg (28.0-34.0); Mean Corpuscular Volume 95.7 fL (80-94); Mean Platelet Volume 10.2 fL (7.4-10.4); Monocytes # 0.8 10^3/uL (0.2-0.9); Monocytes % 7.2 %; Neutrophils # 8.8 10^3/uL (1.8-7.7); Neutrophils % 81.2 %; Nucleated Red Blood Cells % 0 %; Platelet Count 197 10^3/cmm (130-400); Red Blood Count 4.42 10^6/uL (4.1-5.3); Red Cell Distribution Width 16.1 % (12.1-15.1); White Blood Count 10.9 10^3/uL (4.0-10.0)
[2019-06-17 07:08] LABS: Anion Gap 16.1 (5-19); Blood Urea Nitrogen 28 mg/dL (8-23); Calcium 9.1 mg/dL (8.5-10.5); Carbon Dioxide 30 mmol/L (22-29); Chloride 96 mmol/L (98-107); Glucose 93 mg/dL (65-115); Osmolality Calculated 283 mOsm/kg (285-295); Potassium 4.1 mmol/L (3.5-5.1); Sodium 138 mmol/L (136-145)
[2019-06-17] MEDS: metoprolol tartrate 25 mg Tablet 12.5 MG PO ×2 (08:45→18:10)
[2019-06-17] MEDS: heparin 5,000 unit/mL INJ 1 mL 5000 UNIT SUBCUT (08:46)
--- NOTE | 2019-06-17 11:53 | PC.NURSE ---
O2 weaned down over the morning patient O2 sat 95% on 1Liter, no on room air with no change noted. Will monitor.
--- NOTE | 2019-06-17 14:00 | PC.NURSE ---
Patient was stating he wants to leave. Stated he was leaving even it was against medical, provider informed. Nurse re-attempted education a second time on importance of needing Bumex, elevated BNP, and the high risk for repeated fluid overload. States he wants to leave because he has terminal cancer and does not want to spend his time in the hospital. States he will stay until tomorrow and then re-eval his choices at that time if a discharge is not possible at that time. Will cont to monitor.
--- NOTE | 2019-06-17 15:59 | PM.PN ---
Subjective Subjective: Interval history: Patient seen and examined, sitting in chair by bedside, is in good spirits, is currently off oxygen, no noted dyspnea and reports feeling much better even with exertion. Intermittent A. fib on monitor with heart rates going up into the 140s overnight, much better controlled this morning. Normotensive, afebrile. Had 2120 mL urine output overnight. Reports wanting to go home tomorrow. Medications: Reviewed: Yes Medication Review Details: Active Medications Generic Name Dose Route Start Last Admin Trade Name Freq PRN Reason Stop Dose Admin Acetaminophen 650 mg 06/16/19 16:00 Tylenol PO Q6H PRN Mild/Mod Pain Or Temp >/= 101 Hydrocodone Bitart /Acetaminophen 1 tab 06/16/19 16:00 [place] 5-325 Mg PO Q4H PRN MODERATE TO SEVER E PAIN Albuterol/Ipratrop ium 3 ml 06/16/19 16:00 Duoneb INHALATION Q4H.RESPIRATORY P RN Shortness [place] th Bumetanide 1 mg 06/16/19 16:00 06/17/19 04:04 Bumex IV 1 mg Q12H [place]ER Administration Heparin Sodium (Be ef Lung) 5,000 unit 06/16/19 16:00 06/17/19 08:46 Heparin SUBCUT 5,000 unit Q8H SCHU[place]ER Administration Metoprolol Tartrat e 5 mg 06/16/19 19:00 Metoprolol Tartr ate IV Q4H PRN HEART RATE-HIGH Metoprolol Tartrat e 12.5 mg 06/16/19 19:00 06/17/19 08:45 Lopressor PO 12.5 mg BID SCHUYLER Administration Morphine Sulfate 2 mg 06/16/19 16:00 Morphine IVP Q4H PRN SEVERE PAIN Ondansetron HCl 4 mg 06/16/19 16:00 Zofran IVP Q6H PRN NAUSEA AND VOMITI NG No Known Allergies Allergy (Verified 05/18/19 08:54) Vitals/I&O/Wt Last Vital Signs Temp 98.7 F 06/17/19 15:03 Pulse 68 06/17/19 15:03 Resp 22 H 06/17/19 15:03 BP 104/68 06/17/19 15:03 Pulse Ox 94 06/17/19 15:03 06/17/19 06/17/19 06/17/19 06:59 14:59 22:59 Intake Total 360 / 360 Output Total 720 / 2120 450 / 450 Balance -720 / -1700 -90 / -90 Weight last 48 hrs Weight 68.991 kg Weight 70.307 kg Physical Exam Const: COMMON NORMALS: no apparent distress and oriented x3 GENERAL APPEARANCE: cooperative and comfortable ORIENTATION/CONSCIOUSNESS: Yes awake OTHER: -looks appropriate for age HENMT: COMMON NORMALS: normocephalic, head/scalp atraumatic, hearing grossly normal bilaterally and moist oral mucous membranes HEAD & SCALP: normocephalic and atraumatic Eye: COMMON NORMALS: PERRL, EOMs intact bilaterally and conjunctivae normal CONJUNCTIVA: Yes conjunctivae normal PUPIL: Yes PERRL Neck/C-Spine: COMMON NORMALS: full ROM GENERAL: Yes normal visual inspection and Yes trachea midline Resp: COMMON NORMALS: normal respiratory effort, no retractions and no use of accessory muscles EFFORT & INSPECTION: Yes able to speak in complete sentences, Yes symmetric chest movement and No tachypneic OTHER: -equal air entry bilaterally, minimally dyspneic with exertion, on RA Cardio: COMMON NORMALS: S1 normal heart sound, S2 normal heart sound and no murmurs RATE: tachycardic RHYTHM: abnormal rhythm irregularly irregular HEART SOUNDS: S1 normal and S2 normal GI: COMMON NORMALS: normal to inspection, nondistended, normoactive bowel sounds, soft to palpation and non-tender PALPATION: Yes soft Extremity: COMMON NORMALS: normal to inspection and full ROM NARRATIVE EXTREMITY EXAM: -noted pitting edema, 1+ of bilateral LEs primarily pedal and worse on Rl -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 Neuro: COMMON NORMALS: oriented x3, moves all extremities, no focal motor deficits and no sensory deficits noted Psych: COMMON NORMALS: mental status grossly normal, thought process normal, cooperative, affect normal and speech normal SPEECH: Yes normal speech THOUGHT PROCESS: normal thought process Skin: COMMON NORMALS: no rashes or lesions noted, no jaundice, no petechiae and no mottling GENERAL SKIN EXAM: no rashes or lesions noted Data : 06/17/19 06:20 06/17/19 06:20 A&P Assessment and plan (1) Acute exacerbation of CHF (congestive heart failure): -acute systolic CHF exacerbation as evidenced by dyspnea, orthopnea, LE edema, elevated BNP (14,280) -has been on low dose Lasix -due to renal impairment, has been on IV diuresis with Bumex with good response -daily weights, monitor Is & Os, monitor renal function, lytes -VSS; continue to monitor vital signs -telemetry monitoring -Echo (04/2019): EF=35%, +hypokinesis, mild MR, trace AR -follows up with Dr. Mendez as an outpatient -per Oncology documentation, there was some concern that oral chemotherapy (Osimertinib) may have contributed to ventricular dysfunction so discontinued -patient has known CAD so likely ischemic in etiology Status: Acute Code(s): I50.9 - Heart failure, unspecified (2) Lung cancer: -Patient has known moderately differentiated invasive adenocarcinoma of the right middle lobe, stage IV with suspected bone involvement -Follows up with Dr. Farrar -Not currently receiving treatment Status: Chronic Code(s): C34.90 - Malignant neoplasm of unspecified part of unspecified bronchus or lung (3) HTN (hypertension): -VSS; continue to monitor vital signs -continue low-dose beta-javed, hold lisinopril secondary to renal impairment Status: Chronic Qualifiers: Hypertension type: essential hypertension Qualified Code(s): I10 - Essential (primary) hypertension Code(s): I10 - Essential (primary) hypertension (4) Atrial fibrillation: -Has known history of paroxysmal atrial fibrillation -Had previously been on anticoagulation with Eliquis, aspirin both of which are discontinued due to ongoing hemoptysis -Rate controlled with low-dose metoprolol currently dosed at 12.5 mg daily; dose switched from twice daily dosing secondary to tendency towards hypotension -Patient follows up with Dr. Mendez as an outpatient -Currently in A. fib with RVR per front desk monitor -continue metoprolol -Continue telemetry monitoring -Continue to monitor vital signs Status: Chronic Code(s): I48.91 - Unspecified atrial fibrillation (5) Coronary artery disease: -Has known history of CAD status post angioplasty/stent placement -No active chest pain, troponins noted with no significant delta change Status: Chronic Qualifiers: Coronary Disease-Associated Artery/Lesion type: unspecified vessel or lesion type [place] vs. transplanted heart: [place] heart Associated angina: angina presence unspecified Qualified Code(s): I25.10 - Atherosclerotic heart disease of [place] coronary artery without angina pectoris Code(s): I25.10 - Atherosclerotic heart disease of [place] coronary artery without angina pectoris (6) Chronic kidney disease: -Has known history of CKD stage 2-3; baseline Cr around 1.3-1.5 -continue to monitor renal function particularly with diuresis -renally dose meds, avoid nephrotoxins Status: Chronic Code(s): N18.9 - Chronic kidney disease, unspecified (7) Hyperlipidemia: -on high intensity statin, resume Status: Chronic Qualifiers: Hyperlipidemia type: unspecified Qualified Code(s): E78.5 - Hyperlipidemia, unspecified Code(s): E78.5 - Hyperlipidemia, unspecified Additional A&P Information -Advanced age -DJD of spine, OA; pain control as needed, usually ambulates independently, no recent falls -recent TIA (04/2019) -cardiac diet as tolerated -DVT ppx with heparin -Dispo: home, lives with -Code status: DNR/DNI, discussed by ED physician Dr. Charlton Attestations Medical Necessity Statement*: Patient requires hospitalization for continued management of acute CHF exacerbation, on IV diuresis. Time Spent in Patient Care: 16 - 35 minutes (>than 50% of time spent in counselling and/or direct pt care on unit). Coding Level of Care Code Acute Warehouse Insulation Worker for Hollie Fwd Diagnoses Acute exacerbation of CHF (congestive heart failure) I50.9 Lung cancer C34.90 HTN (hypertension) I10 Hypertension type: essential hypertension Atrial fibrillation I48.91 Coronary artery disease I25.10 Coronary Disease-Associated Artery/Lesion type: unspecified vessel or lesion type [place] vs. transplanted heart: [place] heart Associated angina: angina presence unspecified Chronic kidney disease N18.9 Hyperlipidemia E78.5 Hyperlipidemia type: unspecified
[2019-06-18] VITALS: BP 102/58; PULSE 92; RESP 18; TEMP 36.7; O2SAT 94
[2019-06-18] MEDS: heparin 5,000 unit/mL INJ 1 mL 5000 UNIT SUBCUT (00:48)
[2019-06-18 04:00] VITALS: BP 106/54; PULSE 94; RESP 18; TEMP 36.5; O2SAT 91
[2019-06-18] MEDS: bumetanide 0.25 mg/mL SDV 10 mL 1 MG IV (04:47)
[2019-06-18 06:00] LABS: Anion Gap 17.8 (5-19); Blood Urea Nitrogen 37 mg/dL (8-23); Calcium 9.3 mg/dL (8.5-10.5); Carbon Dioxide 29 mmol/L (22-29); Chloride 94 mmol/L (98-107); Glucose 125 mg/dL (65-115); Osmolality Calculated 283 mOsm/kg (285-295); Potassium 3.8 mmol/L (3.5-5.1); Sodium 137 mmol/L (136-145)
--- NOTE | 2019-06-18 07:41 | PM.DCS ---
Discharge Providers Date of Admission: 06/16/19 13:49 Date of Discharge: June 18, 2019 Attending Provider at Admission: Luz Marcos MD Attending Provider at Discharge: Luz Marcos MD Primary Care Provider: WILDER Frye Diagnoses at Discharge Discharge Diagnosis (1) Acute exacerbation of CHF (congestive heart failure): Status: Acute Problem details: -acute systolic CHF exacerbation as evidenced by dyspnea, orthopnea, LE edema, elevated BNP (14,280) -has been on low dose Lasix -due to renal impairment, has been on IV diuresis with Bumex with good response -daily weights, monitor Is & Os, monitor renal function, lytes -VSS; continue to monitor vital signs -telemetry monitoring -Echo (04/2019): EF=35%, +hypokinesis, mild MR, trace AR -follows up with Dr. 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 Farrar -Not currently receiving treatment Qualifiers: Laterality: right Lung location: middle lobe of lung Qualified Code(s): C34.2 - Malignant neoplasm of middle lobe, bronchus or lung (3) HTN (hypertension): Status: Chronic Problem details: -VSS; continue to monitor vital signs -continue low-dose beta-javed, hold lisinopril secondary to renal impairment Qualifiers: Hypertension type: essential hypertension Qualified Code(s): I10 - Essential (primary) hypertension (4) Atrial fibrillation: Status: Chronic Problem details: -Has known history of paroxysmal atrial fibrillation -Had previously been on anticoagulation with Eliquis, aspirin both of which are discontinued due to ongoing hemoptysis -Rate controlled with low-dose metoprolol currently dosed at 12.5 mg daily; dose switched from twice daily dosing secondary to tendency towards hypotension -Patient follows up with Dr. Mendez as an outpatient -Currently in A. fib with RVR per quality assurance monitor body -continue metoprolol -Continue telemetry monitoring -Continue to monitor vital signs Qualifiers: Atrial fibrillation type: paroxysmal Qualified Code(s): I48.0 - Paroxysmal atrial fibrillation (5) Coronary artery disease: Status: Chronic Problem details: -Has known history of CAD status post angioplasty/stent placement -No active chest pain, troponins noted with no significant delta change Qualifiers: Coronary Disease-Associated Artery/Lesion type: unspecified vessel or lesion type [place] vs. transplanted heart: [place] heart Associated angina: angina presence unspecified Qualified Code(s): I25.10 - Atherosclerotic heart disease of [place] coronary artery without angina pectoris (6) Chronic kidney disease: Status: Chronic Problem details: -Has known history of CKD stage 2-3; baseline Cr around 1.3-1.5 -continue to monitor renal function particularly with diuresis -renally dose meds, avoid nephrotoxins Qualifiers: Chronic kidney disease stage: stage 3 (moderate) Qualified Code(s): N18.3 - Chronic kidney disease, stage 3 (moderate) (7) Hyperlipidemia: Status: Chronic Problem details: -on high intensity statin Qualifiers: Hyperlipidemia type: unspecified Qualified Code(s): E78.5 - Hyperlipidemia, unspecified Other Information Additional DC diagnoses/information: -Advanced age -DJD of spine, OA; pain control as needed, usually ambulates independently, no recent falls -recent TIA (04/2019) Reason for Visit Reason for Visit: Reason For Visit: SHORTNESS OF BREATH Hospital Course Hospital Course: Patient was admitted to the medical surgical floor and placed on isolation precautions secondary to COVID-19 testing. Once test results were available and negative, isolation precautions were discontinued. In the meantime patient was treated with IV diuretics secondary to clinical evidence of acute CHF exacerbation. He was diuresed with Bumex secondary to underlying chronic renal impairment, he responded quite well and has diuresed a total of 2.5 L and lost approximately 2 kg's of water weight. He has been hemodynamically stable and weaned off supplemental oxygen fairly quickly. He has been afebrile with decreased white count, stable renal function. Secondary to need for continued diuretics I will continue his metoprolol at 12.5 mg daily to prevent hypotension. Patient is to continue home health services provided by [facility]. He is to continue to follow-up with oncology as well as his primary care provider. He is counseled on need to seek medical attention immediately should his symptoms worsen or return. Discharge Summary: -Patient to follow-up with his primary care provider within 1 week -Patient to continue to follow-up with Dr. Farrar as scheduled -Patient to continue to follow-up with Dr. Mendez as scheduled Physical Exam Const: COMMON NORMALS: no apparent distress and oriented x3 GENERAL APPEARANCE: cooperative and comfortable ORIENTATION/CONSCIOUSNESS: Yes awake OTHER: -looks appropriate for age HENMT: COMMON NORMALS: normocephalic, head/scalp atraumatic, hearing grossly normal bilaterally and moist oral mucous membranes HEAD & SCALP: normocephalic and atraumatic Eye: COMMON NORMALS: PERRL, EOMs intact bilaterally and conjunctivae normal CONJUNCTIVA: Yes conjunctivae normal PUPIL: Yes PERRL Neck/C-Spine: COMMON NORMALS: full ROM GENERAL: Yes normal visual inspection and Yes trachea midline Resp: COMMON NORMALS: normal respiratory effort, no retractions and no use of accessory muscles EFFORT & INSPECTION: Yes able to speak in complete sentences, Yes symmetric chest movement and No tachypneic OTHER: -equal air entry bilaterally, minimally dyspneic with exertion, on RA Cardio: COMMON NORMALS: S1 normal heart sound, S2 normal heart sound and no murmurs RATE: tachycardic RHYTHM: abnormal rhythm irregularly irregular HEART SOUNDS: S1 normal and S2 normal GI: COMMON NORMALS: normal to inspection, nondistended, normoactive bowel sounds, soft to palpation and non-tender PALPATION: Yes soft Extremity: COMMON NORMALS: normal to inspection and full ROM NARRATIVE EXTREMITY EXAM: -noted pitting edema, 1+ of bilateral LEs primarily pedal and worse on R -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 Neuro: COMMON NORMALS: oriented x3, moves all extremities, no focal motor deficits and no sensory deficits noted Psych: COMMON NORMALS: mental status grossly normal, thought process normal, cooperative, affect normal and speech normal SPEECH: Yes normal speech THOUGHT PROCESS: normal thought process Skin: COMMON NORMALS: no rashes or lesions noted, no jaundice, no petechiae and no mottling GENERAL SKIN EXAM: no rashes or lesions noted Discharge Data Data Completed and Pending: Completed Studies During Hospitalization Category Date Time Status XR chest 1V charles ble [id number] Stat Exams 06/16/19 10:39 Completed Labs from last 24 hours 06/18/19 06/16/19 05:27 13:10 Sodium 137 Potassium 3.8 Chloride 94 L Carbon Dioxide 29 Anion Gap 17.8 BUN 37 H Creatinine 1.7 H Glucose 125 H Calculated Osmolal ity 283 L Calcium 9.3 Nasal/Oral COVID-1 9 PCR See comment Vitals: Last Vital Signs Temp 97.7 F 06/18/19 04:00 Pulse 94 06/18/19 04:00 Resp 18 06/18/19 04:00 BP 106/54 06/18/19 04:00 Pulse Ox 91 06/18/19 04:00 Discharge Plan Discharge Patient Disposition: Home Health Service Condition: Stable Prescriptions: New bumetanide 1 mg tablet 1 mg PO DAILY 30 Days Qty: 30 RF: 0 Continued Xarelto 15 mg tablet 15 mg PO DAILY RF: 0 prednisone 10 mg tablet 10 mg PO BID RF: 0 metoprolol tartrate 25 mg tablet 12.5 mg PO DAILY RF: 0 ipratropium-albuterol 0.5 mg-3 mg(2.5 mg base)/3 mL Solution For Nebulization 3 ml INHALATION QID PRN (Reason: Shortness Of Breath) RF: 0 Tylenol Extra Strength 500 mg Tablet 500 mg PO DAILY PRN (Reason: Pain) RF: 0 Discontinued Lasix 20 mg tablet 20 mg PO QAM RF: 0 Discharge Orders: Discharge Order (Routine); Ordered 06/18/19 Ordered By: Luz Marcos Referrals: Teri Hernandez FNP [Primary Care Provider] - 4-7 days (Post hospital discharge follow up. Treated for acute CHF exacerbation. ) Discharge Diet: Cardiac Discharge Activity: Resume usual activity Discharge Attestations Time Spent in Discharge Care*: greater than 30 min Specific Discharge Activities: Specific discharge activities: educating patient, discussing with caser up/social workers/dc planners, documenting/other paperwork and evaluating patient/reviewing data Status at Discharge: Cognitive status at discharge: cognitively intact, Behavioral status at discharge: cooperative, Functional status at discharge: independent ambulation Overall status at discharge: patient is back to baseline Quality Metrics Clinical Quality Measures During this hospital stay, did patient experience: None Coding Level of Care Code 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 transplanted heart: [place] heart Associated angina: angina presence unspecified Chronic kidney disease N18.3 Chronic kidney disease stage: stage 3 (moderate) Hyperlipidemia E78.5 Hyperlipidemia type: unspecified
[2019-06-18 08:00] VITALS: BP 94/58; PULSE 83; RESP 18; TEMP 36.3; O2SAT 96
[2019-06-18] MEDS: metoprolol tartrate 25 mg Tablet 12.5 MG PO (08:58)
[2019-06-18 09:36] VITALS: PULSE 62; RESP 18; O2SAT 96
== END 2019-06-18 10:42 | disposition home health service (06) | DRG 291 ==
LOC: ER 12:26 → MEDSURG 14:26
PROVIDERS: Admitting Provider Family Medicine; Emergency Provider Family Medicine; Family Provider Nurse Practitioner Family; PCP Nurse Practitioner Family; Visit Provider Family Medicine
DX: I13.0 Hypertensive heart and chronic kidney disease with heart failure and stage 1 through stage 4 chronic kidney disease, or unspecified chronic kidney disease (principal); I50.33 Acute on chronic diastolic (congestive) heart failure; C34.90 Malignant neoplasm of unspecified part of unspecified bronchus or lung; I48.0 Paroxysmal atrial fibrillation; I25.10 Atherosclerotic heart disease of native coronary artery without angina pectoris; N18.3 Chronic kidney disease, stage 3 (moderate); E78.5 Hyperlipidemia, unspecified; Z95.820 Peripheral vascular angioplasty status with implants and grafts; Z79.82 Long term (current) use of aspirin; Z79.83 Long term (current) use of bisphosphonates; Z79.52 Long term (current) use of systemic steroids
CPT/HCPCS: 12345; 36415; 71045; 80048; 80053; 81001; 83880; 84484; 85025; 87635; 87804; 93005; 96372; 99283; J1644; J3490